=== PATIENT | female | born 1955 | race Caucasian/White ===

== ENCOUNTER 2024-12-15 19:48 | Outpatient (OUT) | payer OTHER, SELFPAY ==
--- OUTSIDE RECORDS SUMMARY | 2024-11-11 13:15 | XMS_ITS | Encounter Summary ---
Author Organization [facility] Address [address] [place] [address] Care Team Providers Care Heavy Equipment Operator/Paver Name Role Phone Sascha Campbell APRN, CNP Primary Care Pr ovider Reason for Referral * Imaging (Routine) - Closed Specialty Diagnoses / Procedures Referred By Marky ochoa Referred To Contact Radiology Diagnoses Asymptomatic menopause Procedures DEXA BONE DENSITY 2 SITES Sascha Campbell APRN - CNP [address] [facility], [facility] [place] [address] Phone: tel: fax: Referral ID Status Reason Start Date Expiration Date Visits Re quested Visits Authorized [id number] Closed 11/11/2024 11/11/2025 1 1 * Other (Routine) - Closed Specialty Diagnoses / Procedures Referred By Marky ochoa Referred To Contact Radiology Diagnoses Encounter for screening mammogram for high-risk patient Procedures FRANDY FINESSE DIGITAL SCREEN BILATERAL Sascha Campbell APRN - CNP [address] [facility], [facility] [place] [address] Phone: tel: fax: Referral ID Status Reason Start Date Expiration Date Visits Re quested Visits Authorized [id number] Closed 11/11/2024 11/11/2025 1 1 Reason for Visit * Reason Comments Facial Pain From restorationism to jaw Encounter Details Date Type Department Care Team (Late st Contact Info) Description 11/11/2024 1:15 PM EDT Office Visit Thang Kim MD [address] [place] [id number] Sascha Campbell, BLACK STUDIES PROFESSOR - INTERNET ECOMMERCE SPECIALIST [address] [facility], [place] [address] Asymptomatic menopause (Primary Dx); Encounter for screening mammogram for high-risk patient; Neck pain on right side; Acute intractable headache, unspecified headache type; Hypersomnolence Social History Tobacco Use Types Packs/Day Years Used Date Smoking Tobacco: Every Day Cigarettes 0.5 51.5 Started: 1973 Smokeless Tobacco: Never Tobacco Cessation:Ready to Q uit: No; Counseling Given: Yes Alcohol Use Standard Drinks/Week Comments Not Currently 0 (1 standard drink = 0.6 oz pur e alcohol) [facility] Utilities Answer Date Recorded In the past 12 months has [employer], gas, oil, or water [employer] [place] threatened to shut off services in your home? No 03/11/2024 Humiliation, Afraid, Rape, and Kick questionnair e Answer Date Recorded Within the last year, have y ou been afraid of your partner or ex-partner? No 03/11/2024 Within the last year, have y ou been humiliated or emotionally abused in other ways by your partner or ex-partner? No Within the last year, have y ou been kicked, hit, slapped, or otherwise physically hurt by your partner or ex-partner? No 03/11/2024 Within the last year, have y ou been raped or forced to have any kind of sexual activity by your partner or ex-partner? No 03/11/2024 Social Connection and Isolation Panel [NHANES] A nswer Date Recorded In a typical week, how many times do you talk on the phone with family, friends, or neighbors? Twice a week 03/11/2024 How often do you get together with friends or re latives? Never 03/11/2024 How often do you attend anglican or adventist serv ices? Never 03/11/2024 Do you belong to any clubs o r organizations such as anglican groups, unions, fraternal or athletic groups, or school groups? No 03/11/2024 How often do you attend meet ings of the clubs or organizations you belong to? Never 03/11/2024 Are you , , di vorced, , never , or living with a partner? 03/11/2024 AUDIT-C Answer Date Recorded Q1: How often do you have a drink containing alcohol? Never 03/11/2024 Q2: How many drinks containi ng alcohol do you have on a typical day when you are drinking? Patient does not drink Q3: How often do you have si x or more drinks on one occasion? Never 03/11/2024 Overall Financial Resource Strain (CARDIA) Answe r Date Recorded How hard is it for you to pa y for the very basics like food, housing, medical care, and heating? Not very hard 03/11/2024 PHQ-2 Answer Date Recorded PHQ-9 Total Score 0 11/11/2024 [facility] - Occupational Stress Questionnaire Answer Date Recorded Do you feel stress - tense, restless, nervous, or anxious, or unable to sleep at night because your mind is troubled all the time - these days? Not at all 03/11/2024 Exercise Vital Sign Answer Date Recorde d On average, how many days pe r week do you engage in moderate to strenuous exercise (like a brisk walk)? 0 days 03/11/2024 On average, how many minutes do you engage in exercise at this level? 0 min 03/11/2024 Hunger Vital Sign Answer Date Recorded Within the past 12 months, y ou worried that your food would run out before you got the money to buy more. Never true 03/11/20 24 Within the past 12 months, t he food you bought just didn't last and you didn't have money to get more. Never true 03/11/2024 PRAPARE - Transportation Answer Date Re corded In the past 12 months, has l ack of transportation kept you from medical appointments or from getting medications? No 02/28 In the past 12 months, has l ack of transportation kept you from meetings, work, or from getting things needed for daily living? No 03/11/2024 Housing Stability Vital Sign Answer Rayo e Recorded In the last 12 months, was t here a time when you were not able to pay the mortgage or rent on time? No 03/06/2023 Number of Places Lived in the Last Year Not on f ile 03/06/2023 In the last 12 months, was t here a time when you did not have a steady place to sleep or slept in a custodial (including now)? No 03/06/2023 Housing Stability Vital Sign Answer Rayo e Recorded In the last 12 months, was t here a time when you were not able to pay the mortgage or rent on time? No 03/11/2024 In the past 12 months, how m any times have you moved where you were living? 1 03/11/2024 At any time in the past 12 m [facility], were you homeless or living in a custodial (including now)? No 03/11/2024 Food Insecurity Answer Date Recorded Within the past 12 months, y ou worried that your food would run out before you got the money to buy more. 1 03/11/2024 Within the past 12 months, t he food you bought just didn't last and you didn't have money to get more. 1 03/11/2024 Comments No Sex and Gender Information Value Date Recorded Sex Assigned at Not on file Legal Sex Female 5:50 PM EST Gender Identity Not on file Sexual Orientation Not on file documented as of this encounter Last Filed Vital Signs Vital Sign Reading Time Taken Comments Blood Pressure 132/60 11/11/2024 1:23 PM EDT Pulse 68 11/11/2024 1:15 PM EDT Temperature - - Respiratory Rate - - Oxygen Saturation - - Inhaled Oxygen Concentration - - Weight 65.8 kg (145 lb) 11/11/2024 1:15 PM EDT Height 152.4 cm (5') 11/11/2024 1:15 PM EDT Body Mass Index 28.32 11/11/2024 1:15 PM EDT documented in this encounter Patient Instructions * Patient Instructions* Sascha Campbell APRN - INTERNET ECOMMERCE SPECIALIST - 11/11/2024 1:41 PM EDT Medications directions and side effects. Ice and heat as directed. ROM exercises/gentle stretching as directed and tolerated. documented in this encounter Progress Notes * Sascha Campbell APRN - CNP - 11/11/2024 1:19 PM EDT Images from the original note were not included. THANG KIM MD [facility] THANG KIM MD [address] [place] [address] [place] [address] Dept: [phone] Dept Adia Pena is a 68 y.o. female who presents today for her medical conditions/complaintsas noted below. Adia Pena is c/o of Facial Pain (From restorationism to jaw) HPI: HPI Adia presents today for c/o of head pain. Started around 10 days ago. Only present during the night and in the morning when she lays. In the right upper restorationism and radiates down into the right jaw almost to chin. Burning, shooting ache. No redness, no swelling, no rashes. No restorationism tenderness or swelling. Has pain the neck that she feels radiates up the head. Pain is only at night and does wax and wane with position in bed. As soon as she gets up and moves around then the pain resolves quickly. Does not have the pain at all during day no matter activity. Does feel that she has the neck painand will flare with different activities. She is walking daily for weight loss that is effective. Akin haynes takes celebrex that is helpful with knee and other joint pain. She does not take tylenol routinely. She was given 5 days of prednisone and the pain resolved while on this but came back a day or so later just at night still. She denies any falls or injuries preceding this. She denies any other neurological symptoms: facial numbness, tingling, drooping, difficulty with speech or swallowing, no hearing or visual disturbances. No extremity weakness. Denies any fevers or chills, chest pain, shortness of breath, nausea, vomiting, diarrhea, headaches, dizziness, weakness, no other problems or concerns. She does have fatigue during day. Can fall asleep easily. Unknown if snores, sleeps by herself. Hasno previous sleep studies. Current Outpatient Medications Medication Sig Dispense Refill ezetimibe (ZETIA) 10 MG tablet TAKE 1 TABLET BY MOUTH EVERY DAY 90 tablet 1 celecoxib (CELEBREX) 100 MG capsule TAKE 1 CAPSULE BY MOUTH EVERY DAY 90 capsule 1 Timnath-3 Fatty Acids (FISH OIL HIGH POTENCY) 1000 MG CAPS Take 1,000 mg by mouth daily NONFORMULARY Take 1 capsule by mouth Daily Indications: Cholesteroff Multiple Minerals-Vitamins (BVM-ORA-CEDY-D PO) Take by mouth daily Multiple Vitamins-Minerals (THERAPEUTIC MULTIVITAMIN-MINERALS) tablet Take 1 tablet by mouth daily b complex vitamins capsule Take 1 capsule by mouth daily Probiotic Product (PROBIOTIC ACIDOPHILUS BEADS PO) Take by mouth daily Cholecalciferol (VITAMIN D3) 125 MCG (5000 UT) TABS Take by mouth No current facility-administered medications for this visit. Allergies Allergen Reactions Statins Myalgia Subjective: Review of Systems Constitutional: Negative for activity change, chills and fever. HENT: Negative for ear pain, tinnitus and trouble swallowing. Eyes: Negative for photophobia, pain and visual disturbance. Respiratory: Negative for shortness of breath. Cardiovascular: Negative for chest pain and leg swelling. Gastrointestinal: Negative for abdominal pain, diarrhea, nausea and vomiting. Musculoskeletal: Positive for neck pain. Negative for arthralgias, back pain, gait problem, joint swelling, myalgias and neck stiffness. Skin: Negative for rash. Neurological: Positive for tremors, syncope and headaches. Negative for dizziness, seizures, facialasymmetry, speech difficulty, weakness, light- headedness and numbness. Objective: Physical Exam Vitals and nursing note reviewed. Constitutional: General: She is not in acute distress. Appearance: She is well-developed. She is not ill-appearing or toxic-appearing. HENT: Head: Normocephalic and atraumatic. Hair is normal. Jaw: There is normal jaw occlusion. No tenderness or pain on movement. Salivary Glands: Right salivary gland is not diffusely enlarged or tender. Left salivary gland is not diffusely enlarged or tender. Right Ear: Tympanic membrane, ear canal and external ear normal. No middle ear effusion. Tympanic membrane is not perforated or erythematous. Left Ear: Tympanic membrane, ear canal and external ear normal. No middle ear effusion. Tympanic membrane is not perforated or erythematous. Nose: No mucosal edema or rhinorrhea. Right Sinus: No maxillary sinus tenderness or frontal sinus tenderness. Left Sinus: No maxillary sinus tenderness or frontal sinus tenderness. Mouth/Throat: Mouth: Mucous membranes are not dry. Pharynx: Uvula midline. No oropharyngeal exudate or posterior oropharyngeal erythema. Eyes: General: No scleral icterus. Pupils: Pupils are equal, round, and reactive to light. Neck: Thyroid: No thyromegaly. Vascular: No carotid bruit. Trachea: Phonation normal. Cardiovascular: Rate and Rhythm: Normal rate and regular rhythm. Pulses: Normal pulses. Heart sounds: Normal heart sounds. No murmur heard. No friction rub. No gallop. Pulmonary: Effort: Pulmonary effort is normal. No respiratory distress. Breath sounds: Normal breath sounds. No decreased breath sounds, wheezing, rhonchi or rales. Abdominal: General: Bowel sounds are normal. There is no distension. Palpations: Abdomen is soft. Musculoskeletal: General: Normal range of motion. Cervical back: Full passive range of motion without pain, normal range of motion and neck supple. No rigidity. No pain with movement, spinous process tenderness or muscular tenderness. Lymphadenopathy: Head: Right side of head: No submental, submandibular, tonsillar, preauricular, posterior auricular or occipital adenopathy. Left side of head: No submental, submandibular, tonsillar, preauricular, posterior auricular or occipital adenopathy. Cervical: No cervical adenopathy. Skin: General: Skin is warm and dry. Neurological: Mental Status: She is alert and oriented to person, place, and time. Cranial Nerves: Cranial nerves 2-12 are intact. Sensory: Sensation is intact. Motor: Motor function is intact. Coordination: Coordination is intact. Coordination normal. Gait: Gait is intact. Psychiatric: Behavior: Behavior normal. Behavior is cooperative. BP 132/60 Pulse 68 Ht 1.524 m (5') Wt 65.8 kg (145 lb) BMI 28.32 kg/m?? Assessment: 1. Asymptomatic menopause Needs eval and ordered dexa - DEXA BONE DENSITY 2 SITES; Future 2. Encounter for screening mammogram for high-risk patient - [facility] FINESSE DIGITAL SCREEN BILATERAL; Future 3. Neck pain on right side Need eval for underlying cervical disc disease. She refuses a CT or MRI. - XR CERVICAL SPINE (2-3 VIEWS); Future - C-Reactive Protein; Future - Sedimentation Rate; Future 4. Acute intractable headache, unspecified headache type Positional with laying/sleep only and on lateral aspect of head. Does not seem to be trigeminal neuralgia with pain only in day and not triggered with any touch to face. Also no right restorationism pain, tenderness throughout day and likely GCA with just positional. Need inflammatory markers for eval also. Recommended tylenol prn also. - C-Reactive Protein; Future - Sedimentation Rate; Future 5. Hypersomnolence: home sleep study with headaches upon awakening and fatigue. Plan: Assessment & Plan Return if symptoms worsen or fail to improve. Orders Placed This Encounter Procedures FRANDY FINESSE DIGITAL SCREEN BILATERAL Standing Status: Future Expected Date: 11/11/2024 Expiration Date: 01/11/2026 Reason for exam:: screening DEXA BONE DENSITY 2 SITES Standing Status: Future Expected Date: 11/11/2024 Expiration Date: 11/11/2025 Reason for exam:: Screening XR CERVICAL SPINE (2-3 VIEWS) Standing Status: Future Expected Date: 11/11/2024 Expiration Date: 11/11/2025 Reason for exam:: neck pain with radiculopathy to right head C-Reactive Protein Standing Status: Future Number of Occurrences: 1 Expected Date: 11/11/2024 Expiration Date: 11/11/2025 Sedimentation Rate Standing Status: Future Number of Occurrences: 1 Expected Date: 11/11/2024 Expiration Date: 11/11/2025 No orders of the defined types were placed in this encounter. Medications directions and side effects. Ice and heat as directed. ROM exercises/gentle stretching as directed and tolerated. Patientgiven educational materials - see patient instructions. Discussed use, benefit,and side effects of prescribed medications. All patient questions answered. Pt voiced understanding. Patient agreed with treatment plan. Follow up as directed. documented in this encounter Plan of Treatment Upcoming Encounters Date Type Department Care Team (Late st Contact Info) Description 02/03/2025 9:20 AM EDT Office Visit [facility] [address] [facility] [id number] Magy Delaney MD [address] [place] [address] Chronic nonintractable headache, unspecified headache type 03/03/2025 2:30 PM EDT Office Visit Thang Kim MD [address] [place] [address] Sascha Campbell APRN - CNP [address] [facility], [place] [address] maw Scheduled Orders Name Type Priority Associated Diagnoses Orde r Schedule FRANDY FINESSE DIGITAL SCREEN BILATERAL Imaging Routine Encounter for screening mammogram for high-risk patient Expected: 11/11/2024, Expires: 01/11/2026 DEXA BONE DENSITY 2 SITES Imaging Routine Asymptomatic menopause Expected: 11/11/2024, Expires: 11/11/2025 documented as of this encounter Results * Sedimentation Rate (11/12/2024 9:58 AM EDT) Pathologist [facility] Sed Rate, Automated 26 0 - 30 mm/Hr 11/12/2024 9:58 AM EDT [facility] Blood BLOOD SPECIMEN / Unknown 11/12/2024 9:58 AM EDT 11/12/2024 11:16 AM EDT us Sascha Campbell BLACK STUDIES PROFESSOR - INTERNET ECOMMERCE SPECIALIST HEMATOLOGY ORDER JUSTIN Final Result [facility] [address] [place], [place] [id number], [facility] [phone] * (ABNORMAL) C-Reactive Protein (11/12/2024 9:58 AM EDT) Pathologist [facility] CRP 5.1(H) 0.0 - 5.0 mg/L 11/12/2024 9:58 AM EDT [facility] Blood BLOOD SPECIMEN / Unknown 11/12/2024 9:58 AM EDT 11/12/2024 11:16 AM EDT Sascha Campbell BLACK STUDIES PROFESSOR - INTERNET ECOMMERCE SPECIALIST CHEMISTRY ORDERA BLES Final Result [facility] [address] [place] [address], [facility] [phone] documented in this encounter Visit Diagnoses Diagnosis Asymptomatic menopause- Primary Encounter for screening mammogram for high-risk patient Neck pain on right side Cervicalgia Acute intractable headache, unspecified headache type Hypersomnolence Hypersomnia, unspecified documented in this encounter Additional Health Concerns Assessment Noted Time A fall risk assessment has been complete d for the patient 11/11/2024 1:15 PM EDT A Body Mass Index follow-up plan has been documented for the patient 09/02/2022 8:46 AM EST documented as of this encounter Care Teams Heavy Equipment Operator/Paver Relationship Specialty Start Date End Date Sascha Campbell APRN - CNP [address] [place] [address], [facility] [place] [address] PCP - General Nurse Practitioner, Family 02/26/22 documented as of this encounter
--- OUTSIDE RECORDS SUMMARY | 2024-12-01 09:15 | XMS_ITS | Encounter Summary ---
Author Organization [facility] Address [address] [place] [address] Care Team Providers Care Data Transcriber Name Role Phone Unavailable Primary Care Provider Unavailabl e Encounter Details Date Type Department Care Team (Latest Contact Info) Description 12/01/2024 9:15 AM EDT Ancillary Procedure [facility] [address] [place] [address] Neck pain on right side Social History Tobacco Use Types Packs/Day Years Used Date Smoking Tobacco: Never Smokeless Tobacco: Never Comments Unknown Sex and Gender Information Value Date Recorded Sex Assigned at Not on file Legal Sex Female 8:04 PM EDT Gender Identity Female 04/28/2023 11:18 AM EDT Sexual Orientation Not on file documented as of this encounter Plan of Treatment Upcoming Encounters Date Type Department Care Team (Late st Contact Info) Description 12/16/2024 9:30 AM EDT Ancillary Procedure [facility] MR [address] [place] [address] 12/16/2024 10:15 AM EDT Ancillary Procedure [facility] DXA [address] [place] [address] documented as of this encounter Procedures Procedure Name Priority Date/Time Associated Diagnosis Comments XR CERVICAL SPINE 2-3 VIEWS Routine 12/01/2024 9:10 AM EDT Neck pain on right side documented in this encounter Results * XR cervical spine 2 or 3 views (12/01/2024 9:10 AM EDT) Anatomical Region Laterality Modality Spine, C-spine Radiographic Pina ging 12/01/2024 12:1 6 PM EDT Narrative 12/01/2024 12:16 PM EDT Title of exam: XR CERVICAL SPINE 2-3 VIEWS Reason for exam: Chronic neck pain into bilateral scpular region, no trauma Comparison: None 4 images. Prevertebral soft tissues are normal in thickness. Vertebral body height and alignment is maintained from the skull base to the top of T1. Mild disc space narrowing present at C4-C5, C5-C6 and C6-C7 with anterior and posterior spurring. Mild facet arthrosis present at these levels. The spinous processes are normal alignment in the frontal projection. Mild uncovertebral hypertrophy present throughout. The lung apices are without abnormality. Calcifications in the soft tissues suggesting atherosclerosis. The lateral masses and dens are normal alignment in the frontal and lateral projections. The bones are osteopenic. Incidental arthritic changes of the shoulder noted on the swimmer's view. IMPRESSION: 1. Cervical spondylosis from C4-C7 due to disc space narrowing and endplate spurring. Facet arthrosis. 2. Atherosclerosis. 3. Arthritic changes of the shoulder, noted incidentally given the history. Consider shoulder x-rays. Dictated on: 12/01/2024 10:03 AM This report has been electronically signed and approved by the interpreting Radiologist. This report is generated using voice recognition reporting ([employer]). On occasion, [employer] erroneously drops words from the report or replaces the spoken word with a similar sounding word. Please call with any questions/concerns regarding the report. Procedure Note Montana Vegas MD - 12/01/2024 Title of exam: XR CERVICAL SPINE 2-3 VIEWS Reason for exam: Chronic neck pain into bilateral scpular region, notrauma Comparison: None 4 images. Prevertebral soft tissues are normal in thickness. Vertebralbody height and alignment is maintained from the skull base to the top ofT1. Mild disc space narrowing present at C4-C5, C5-C6 and C6-C7 withanterior and posterior spurring. Mild facet arthrosis present at theselevels. The spinous processes are normal alignment in the frontalprojection. Mild uncovertebral hypertrophy present throughout. The lung apices are without abnormality. Calcifications in the softtissues suggesting atherosclerosis. The lateral masses and dens are normal alignment in the frontal andlateral projections. The bones are osteopenic. Incidental arthritic changes of the shoulder noted on the swimmer'sview. IMPRESSION: 1. Cervical spondylosis from C4-C7 due to disc space narrowing andendplate spurring. Facet arthrosis. 2. Atherosclerosis. 3. Arthritic changes of the shoulder, noted incidentally given thehistory. Consider shoulder x-rays. Dictated on: 12/01/2024 10:03 AM This report has been electronically signed and approved by theinterpreting Radiologist. This report is generated using voice recognition reporting (Contin[employer] Software).On occasion, [employer] erroneously drops words from the report orreplaces the spoken word with a similar sounding word. Please call withany questions/concerns regarding the report. us Osmany Vo MD IMG XR PROCEDURES Final Result documented in this encounter Visit Diagnoses Diagnosis Neck pain on right side documented in this encounter
--- OUTSIDE RECORDS SUMMARY | 2024-12-01 09:30 | XMS_ITS | Encounter Summary ---
Author Organization [facility] Address [address] [place] [address] Care Team Providers Care Ranch Supervisor Name Role Phone Unavailable Primary Care Provider Unavailabl e Reason for Visit * Imaging (Routine) - Closed Specialty Diagnoses / Procedures Referred By Contac t Referred To Contact Radiology Diagnoses Neck pain on right side Headache, unspecified Procedures CT head w and wo IV contrast CT head w IV contrast Osmany Vo MD [address] [place] [address] Phone: tel: fax: [facility] [address] [place] [address] Phone: tel: fax: Referral ID Status Reason Start Date Expiration Date Visits Re quested Visits Authorized [id number] Closed 11/17/2024 05/16/2025 1 1 Encounter Details Date Type Department Care Team (Latest Contact Info) Description 12/01/2024 9:30 AM EDT Ancillary Procedure [facility] [address] [place] [address] Neck pain on right side; Headache, unspecified Social History Tobacco Use Types Packs/Day Years Used Date Smoking Tobacco: Never Smokeless Tobacco: Never Comments Unknown Sex and Gender Information Value Date Recorded Sex Assigned at Not on file Legal Sex Female 8:04 PM EDT Gender Identity Female 04/28/2023 11:18 AM EDT Sexual Orientation Not on file documented as of this encounter Plan of Treatment Upcoming Encounters Date Type Department Care Team ( st Contact Info) Description 12/16/2024 9:30 AM EDT Ancillary Procedure [facility] [address] [place] [address] 12/16/2024 10:15 AM EDT Ancillary Procedure [facility] [address] [place] [address] documented as of this encounter Procedures Procedure Name Priority Date/Time Associated Diagnosis Comments CT HEAD W AND WO IV CONTRAST Routine 12/01/2024 10:02 AM EDT Neck pain on right side Headache, unspecified documented in this encounter Results * CT head w and wo IV contrast (12/01/2024 10:02 AM EDT) Anatomical Region Laterality Modality Head, Neck Computed Tomogra phy Specimen from head / Unknown 12/02/2024 4:46 PM EDT Narrative 12/02/2024 4:46 PM EDT EXAM: CT Head With and Without Contrast. REASON FOR EXAM: Generalized headache x3 weeks. COMPARISON: None TECHNIQUE: Axial pre and post contrast images of the brain were obtained. CONTRAST: 50 ml Isovue 300 FINDINGS: There is no acute intracranial hemorrhage, mass or cortical-based infarct. There is no midline shift, mass effect, hydrocephalus or extra-axial fluid collection. The ventricles and sulci are symmetric. The smith-white interface is preserved. The visualized paranasal sinuses and mastoid air cells are well aerated. The osseous structures are unremarkable. Scattered white matter changes are present bilateral and symmetric. IMPRESSION: 1. No acute intracranial abnormalities by CT. There is no abnormal enhancement. 2. Scattered white matter changes bilateral and symmetric. The differential includes microvascular ischemic change, toxic or substance exposure, periventricular leukomalacia, demyelination. Correlate clinically. *This report is generated using voice recognition reporting (Beyond.come). On occasion Arkeocribe erroneously drops words from the report or replaces the spoken word with similar sounding words. Please call with any questions/concerns regarding this report.* Dictated and transcribed 12/01/24/dpd This report has been electronically signed and approved by the interpreting radiologist. Procedure Note Montana Vegas MD - 12/02/2024 EXAM: CT Head With and Without Contrast. REASON FOR EXAM: Generalized headache x3 weeks. COMPARISON: None TECHNIQUE: Axial pre and post contrast images of the brain wereobtained. CONTRAST: 50 ml Isovue 300 FINDINGS: There is no acute intracranial hemorrhage, mass orcortical-based infarct. There is no midline shift, mass effect,hydrocephalus or extra-axial fluid collection. The ventricles and sulciare symmetric. The smith-white interface is preserved. The visualizedparanasal sinuses and mastoid air cells are well aerated. The osseousstructures are unremarkable. Scattered white matter changes are present bilateral and symmetric. IMPRESSION: 1. No acute intracranial abnormalities by CT. There is no abnormalenhancement. 2. Scattered white matter changes bilateral and symmetric. Thedifferential includes microvascular ischemic change, toxic or substanceexposure, periventricular leukomalacia, demyelination. Correlateclinically. *This report is generated using voice recognition reporting (InVisM).On occasion InVisM erroneously drops words from the report orreplaces the spoken word with similar sounding words. Please call with anyquestions/concerns regarding this report.* Dictated and transcribed 12/01/24/dpd This report has been electronically signed and approved by theinterpreting radiologist. Osmany Vo MD IMG CT PROCEDURES Final Result documented in this encounter Visit Diagnoses Diagnosis Neck pain on right side Headache, unspecified documented in this encounter Administered Medications Inactive Administered Medications - up to 3 most recent administrations Medication Order MAR Action Action Date Dose Rate Site iopamidol (Isovue-300) 61 % injection 100 mL 100 mL, Intravenous, Once in imaging, Starting on Fri12/01/24 at 1002, For 1 dose, Use NS provided in 500 mL or 1000 mL flexible bags for preparation.Indications:Neck pain on right side,Headache, unspecified New Bag 12/01/2024 10:03 AM EDT 100 mL documented in this encounter
--- OUTSIDE RECORDS SUMMARY | 2024-12-01 10:00 | XMS_ITS | Encounter Summary ---
Author Organization [facility] Address [address] [place] [address] Care Team Providers Care Machine Rug Cleaner Name Role Phone Unavailable Primary Care Provider Unavailabl e Reason for Visit * Imaging (Routine) - Closed Specialty Diagnoses / Procedures Referred By Contac t Referred To Contact Radiology Diagnoses Personal history of nicotine dependence Procedures CT lung screening low dose Osmany Vo MD [address] [place] [address] Phone: tel: fax: [facility] [address] [place] [address] Phone: tel: fax: Referral ID Status Reason Start Date Expiration Date Visits Re quested Visits Authorized [id number] Closed 12/01/2024 05/30/2025 1 1 Encounter Details Date Type Department Care Team (Latest Contact Info) Description 12/01/2024 10:00 AM EDT Ancillary Procedure [facility] [address] [place] [address] Personal history of nicotine dependence Social History Tobacco Use Types Packs/Day Years [...] Ancillary Procedure [facility] [address] [place] [address] 12/16/2024 10:15 AM EDT Ancillary Procedure [facility] [address] [place] [id number] documented as of this encounter Procedures Procedure Name Priority Date/Time Associated Diagnosis Comments CT LUNG SCREENING LOW DOSE Routine 12/01/2024 10:03 AM EDT Personal history of nicotine dependence documented in this encounter Results * CT lung screening low dose (12/01/2024 10:03 AM EDT) Anatomical Region Laterality Modality Lung Computed Tomogra phy 12/01/2024 10:5 7 AM EDT Impressions 12/01/2024 11:13 AM EDT Lung Rads: LUNGRADS 2 - Benign Follow-up Recommendation: LDCT 1 Year Lung Rads categories: Category 0: Incomplete Additional Imaging Categories 1 & 2: Negative/Benign Continue annual screening Category 3: Probable benign 6 month f/u CT Chest wo Category 3s: Clinically significant or potentially clinically significant findings Category 4A/B Suspicious 4A: [address] Chest wo; PET/CT when > 8mm solid nodule component exists 4B: Chest w/ contrast; PET/CT and/or biopsy Category 5: Highly suspicious for Nodules with strong evidence of malignancy, requiring malignancy. immediate biopsy. Category 6: Incomplete Insufficient Information All CT scans at this facility use dose modulation, iterative reconstruction, and/or weight based dosing when appropriate to reduce radiation dose to as low as reasonably achievable. TRANSCRIBED BY: ELECTRONICALLY SIGNED BY: Javier Hazel MD Narrative 12/01/2024 11:[address] IMAGING OF THE CHEST WITHOUT INTRAVENOUS CONTRAST MEDIUM. HISTORY: Tobacco use. TECHNICAL FACTORS: Without IV contrast axial helical 1.25mm slice thickness low dose images of the chest performed for lung cancer screening. Findings: Comparison made with prior examination of April 29, 2023. No suspicious mass or parenchymal consolidation. Stable right upper lobe 2mm non-calcified nodule. New minimal subsegmental atelectasis within the right base. Procedure Note Javier Hazel MD - 12/01/[address] IMAGING OF THE CHEST WITHOUT INTRAVENOUS CONTRAST MEDIUM. HISTORY: Tobacco use. TECHNICAL FACTORS: Without IV contrast axial helical 1.25mm slice thickness low dose imagesof the chest performed for lung cancer screening. Findings: Comparison made with prior examination of April 29, 2023. No suspiciousmass or parenchymal consolidation. Stable right upper lobe 2mmnon-calcified nodule. New minimal subsegmental atelectasis within theright base. IMPRESSION: Lung Rads: LUNGRADS 2 - Benign Follow-up Recommendation: LDCT 1 Year Lung Rads categories: Category 0: Incomplete Additional Imaging Categories 1 & 2: Negative/Benign Continue annual screening Category 3: Probable benign 6 month f/u CT Chest wo Category 3s: Clinicallysignificant or potentially clinically significant findings Category 4A/B Suspicious 4A: [address] Chest wo;PET/CT when > 8mm solid nodulecomponent exists 4B: Chestw/ contrast; PET/CT and/or biopsy Category 5: Highly suspicious for Nodules with strong evidenceof malignancy, requiring malignancy. immediatebiopsy. Category 6: Incomplete Insufficient Information All CT scans at this facility use dose modulation, iterativereconstruction, and/or weight based dosing when appropriate to reduceradiation dose to as low as reasonably achievable. TRANSCRIBED BY: ELECTRONICALLY SIGNED BY: Javier Hazel MD Osmany Vo MD IMG CT PROCEDURES Final Result documented in this encounter Visit Diagnoses Diagnosis Personal history of nicotine dependence documented in this encounter
--- OUTSIDE RECORDS SUMMARY | 2024-12-15 19:51 | XMS_ITS | Encounter Summary ---
Author Organization [facility] Address [address] [place] [address] Care Team Providers Care Asw/Asuw Tactical Air Controller Name Role Phone Sascha Campbell BOILER HOUSE MECHANIC - FUNERAL CAR CHAUFFEUR Primary Care Pr ovider Encounter Details Date Type Department Care Team ([facility] Contact Info) Description 05/01/2023 Orders Only Osmany Vo MD [address] [place] [address] [place] [phone] ProviderSamy MD Social History Tobacco Use Types Packs/Day Years Used Date Smoking Tobacco: Every Day Cigarettes 0.5 51.5 Started: 1973 Smokeless Tobacco: Never Alcohol Use Standard Drinks/Week Comments Not Currently 0 (1 standard drink = 0.6 oz pur e alcohol) Humiliation, Afraid, Rape, and Kick questionnair e Answer Date Recorded Within the last year, have y ou been afraid of your partner or ex-partner? No 03/06/2023 Within the last year, have y ou been humiliated or emotionally abused in other ways by your partner or ex-partner? No Within the last year, have y ou been kicked, hit, slapped, or otherwise physically hurt by your partner or ex-partner? No 03/06/2023 Within the last year, have y ou been raped or forced to have any kind of sexual activity by your partner or ex-partner? No 03/06/2023 Social Connection and Isolat ion Panel [NHANES] Answer Date Recorded In a typical week, how many times do you talk on the phone with family, friends, or neighbors? More than three times a week 03/06/2023 How often do you get togethe r with friends or relatives? Once a week 03/06/2023 How often do you attend chur ch or baptist services? Never 03/06/2023 Do you belong to any clubs o r organizations such as adventist groups, unions, fraternal or athletic groups, or school groups? No 03/06/2023 How often do you attend meet ings of the clubs or organizations you belong to? Never 03/06/2023 Are you , , di vorced, , never , or living with a partner? 03/06/2023 AUDIT-C Answer Date Recorded Q1: How often do you have a drink containing alc ohol? Monthly or less 03/06/2023 Q2: How many drinks containi ng alcohol do you have on a typical day when you are drinking? 1 or 2 03/06/2023 Q3: How often do you have si x or more drinks on one occasion? Never 03/06/2023 Overall Financial Resource Strain (CARDIA) Answe r Date Recorded How hard is it for you to pa y for the very basics like food, housing, medical care, and heating? Not hard at all 03/06/2023 PHQ-2 Answer Date Recorded PHQ-9 Total Score 0 03/06/2023 [facility] of Occupat ional Health - Occupational Stress Questionnaire Answer Date Recorded Do you feel stress - tense, restless, nervous, or anxious, or unable to sleep at night because your mind is troubled all the time - these days? Not at all 03/06/2023 Exercise Vital Sign Answer Date Recorde d On average, how many days pe r week do you engage in moderate to strenuous exercise (like a brisk walk)? 6 days 03/06/2023 On average, how many minutes do you engage in exercise at this level? 30 min 03/06/2023 Hunger Vital Sign Answer Date Recorded Within the past 12 months, y ou worried that your food would run out before you got the money to buy more. Never true 03/06/20 23 Within the past 12 months, t he food you bought just didn't last and you didn't have money to get more. Never true 03/06/2023 PRAPARE - Transportation Answer Date Re corded In the past 12 months, has l ack of transportation kept you from medical appointments or from getting medications? No 12/2022 In the past 12 months, has l ack of transportation kept you from meetings, work, or from getting things needed for daily living? No 03/06/2023 Housing Stability Vital Sign Answer [...] place to sleep or slept in a mcc (including now)? No 03/06/2023 Food Insecurity Answer Date Recorded Within the past 12 months, y ou worried that your food would run out before you got the money to buy more. 1 03/06/2023 Within the past 12 months, t he food you bought just didn't last and you didn't have money to get more. 1 03/06/2023 Comments No Sex and Gender Information Value Date Recorded Sex Assigned at Not on file Legal Sex Female 5:50 PM EST Gender Identity Not on file Sexual Orientation Not on file documented as of this encounter Plan of Treatment Upcoming Encounters Date Type Department Care Team (Late st Contact Info) Description 02/03/2025 9:20 AM EDT Office Visit [facility] Part of [address] [place] [phone] Magy Delaney MD [address] [place] [address] [address] [place] [phone] Chronic nonintractable headache, unspecified headache type 03/03/2025 2:30 PM EDT Office Visit Osmany Vo MD [address] [place] [address] [place] [address] Sascha Campbell, BOILER HOUSE MECHANIC - FUNERAL CAR CHAUFFEUR [address] [place] [address], [address] [facility] [place] [address] maw documented as of this encounter Procedures Procedure Name Priority Date/Time Associated Diagnosis Comments CT LUNG SCREENING (INITIAL/ANNUAL) Routine 04/29/2023 documented in this encounter Results * CT LUNG SCREENING (04/29/2023) Anatomical Region Laterality Modality Lung, Chest Computed Tomogra phy us Historical Provider MD JESUS CT ORDERABLES Final R esult documented in this encounter Visit Diagnoses Not on filedocumented in this encounter Additional Health Concerns Assessment Noted Time A fall risk assessment has been complete d for the patient 03/06/2023 8:37 AM EDT A Body Mass Index follow-up plan has been documented for the patient 09/02/2022 8:46 AM EST documented as of this encounter Care Teams Asw/Asuw Tactical Air Controller Relationship Specialty Start Date End Date Sascha Campbell APRN - MAIKEL [address] [place] [address], [place] [address] PCP - General Nurse Practitioner, Family 02/26/22 documented as of this encounter
--- OUTSIDE RECORDS SUMMARY | 2024-12-15 19:51 | XMS_ITS | Encounter Summary ---
Author Organization [facility] Address [address] [place] [address] Care Team Providers Care Gear Hobber Operator Name Role Phone Sascha Campbell PHOTOGRAPHIC SPOTTER - SECOND HELPER Primary Care Pr ovider Encounter Details Date Type Department Care Team ([facility] Contact Info) Description 12/03/2024 Telephone Osmany Vo MD [address] [place] [address] Sascha Campbell, PHOTOGRAPHIC SPOTTER - SECOND HELPER [address] [facility], [place] [address] Social History Tobacco Use Types Packs/Day Years Used Date Smoking Tobacco: Every Day Cigarettes 0.5 51.5 Started: 1973 Smokeless Tobacco: Never Alcohol Use Standard Drinks/Week Comments Not Currently 0 (1 standard drink = 0.6 oz pur e alcohol) [facility] Utilities Answer Date Recorded In the past 12 months has [employer], gas, oil, or water [employer] threatened to shut off services in your [...] Never 03/11/2024 How often do you attend holiness or samaritan serv ices? Never 03/11/2024 Do you belong to any clubs o r organizations such as holiness groups, unions, fraternal or athletic groups, or [...] Date Recorded PHQ-9 Total Score 0 11/11/2024 [facility] of Occupat ional Health - Occupational Stress [...] place to sleep or slept in a long term (including now)? No 03/06/2023 Housing Stability Vital Sign Answer Rayo e Recorded In the last 12 months, was t here a time when you were not able to pay the mortgage or rent on time? No 03/11/2024 In the past 12 months, how m any times have you moved where you were living? 1 03/11/2024 At any time in the past 12 m [facility], were you homeless or living in a long term (including now)? No 03/11/2024 Food Insecurity Answer [...] Description 02/03/2025 9:20 AM EDT Office Visit [facility] Part of [address] [place] [address] Magy Delaney MD [address] [place] [address] [address] [facility] [place] [phone] Chronic nonintractable headache, unspecified headache type 03/03/2025 2:30 PM EDT Office Visit Osmany Vo MD [address] [place] [address] [place] [phone] Sascha Campbell, PHOTOGRAPHIC SPOTTER - MAIKEL [address] [facility], [facility] [place] [address] maw documented as of this encounter Visit Diagnoses Not on filedocumented in this encounter Additional Health Concerns Assessment Noted Time A fall risk assessment has been complete d for the patient 11/11/2024 1:15 PM EDT A Body Mass Index follow-up plan has been documented for the patient 09/02/2022 8:46 AM EST documented as of this encounter Care Teams Gear Hobber Operator Relationship Specialty Start Date End Date Sascha Campbell APRN - MAIKEL [address] [place] [address] [place] [address] PCP - General Nurse Practitioner, Family 02/26/22 documented as of this encounter
--- OUTSIDE RECORDS SUMMARY | 2024-12-15 19:51 | XMS_ITS | Encounter Summary ---
Author Organization [facility] Address [address] [place] [address] Care Team Providers Care [employer] Executive Director Name Role Phone Unavailable Primary Care Provider Unavailabl e Encounter Details Date Type Department Care Team (Latest Contact Info) Description 12/07/2024 Travel Social History Tobacco Use Types Packs/Day Years [...] Ancillary Procedure [facility] [address] [place] [address] 12/16/2024 10:15 AM EDT Ancillary Procedure [facility] [address] [place] [address] documented as of this encounter Visit Diagnoses Not on filedocumented in this encounter
--- OUTSIDE RECORDS SUMMARY | 2024-12-15 19:51 | XMS_ITS | Encounter Summary ---
Author Organization [facility] Bj [facility] lamin [facility] Address [address] [place] [address] Care Team Providers Care Cytotechnologist/Cytology Supervisor Name Role Phone Sascha Campbell APRN, CNP Primary Care Pr ovider Reason for Referral * Eval and Treat (Routine) - Open Specialty Diagnoses / Procedures Referred By Marky ochoa Referred To Contact Neurology Diagnoses Chronic nonintractable headache, unspecified headache type Acute intractable headache, unspecified headache type Sascha Campbell APRN - CNP [address] [facility], [place] [address] Phone: tel: fax: Bridgett Bustamante DO [address] [place] [address] Phone: tel: fax: Referral ID Status Reason Start Date Expiration Date V isits Requested Visits Authorized [id number] Open Specialty Services Required 12/07/2024 06/05/2025 1 1 Question Answer Reason For External Referral? Patient Preference Comments The patient can be scheduled with any member of the group, including the provider with the first available appointments. Encounter Details Date Type Department Care Team ([facility] Contact Info) Description 12/07/2024 Orders Only Osmany Vo MD [address] [place] [address] [place] [address] Sascha Campbell APRN - CNP [address] [facility], [place] [address] Acute intractable headache, unspecified headache type (Primary Dx); Chronic nonintractable headache, unspecified headache type Social History Tobacco Use Types Packs/Day Years Used Date Smoking Tobacco: Every Day Cigarettes 0.5 51.5 Started: 1973 Smokeless Tobacco: Never Alcohol Use Standard Drinks/Week Comments Not Currently 0 (1 standard drink = 0.6 oz pur e alcohol) [facility] Utilities Answer Date Recorded In the past 12 months has e [employer], gas, oil, or water [employer] threatened to shut off services in your [...] Never 03/11/2024 How often do you attend gnosticism or uatsdin serv ices? Never 03/11/2024 Do you belong to any clubs o r organizations such as gnosticism groups, unions, fraternal or athletic groups, or [...] Date Recorded PHQ-9 Total Score 0 11/11/2024 [facility] of Occupat ional Health - Occupational Stress [...] place to sleep or slept in a halfway (including now)? No 03/06/2023 Housing Stability Vital Sign Answer Rayo e Recorded In the last 12 months, was t here a time when you were not able to pay the mortgage or rent on time? No 03/11/2024 In the past 12 months, how m any times have you moved where you were living? 1 03/11/2024 At any time in the past 12 m [place], were you homeless or living in a halfway (including now)? No 03/11/2024 Food Insecurity Answer [...] Description 02/03/2025 9:20 AM EDT Office Visit [facility] NEUROLOGY Part of [address] [place] [address] Magy Delaney MD [address] [place] [address] [address] [place] [address] Chronic nonintractable headache, unspecified headache type 03/03/2025 2:30 PM EDT Office Visit Osmany Vo MD [address] [place] [address] [place] [address] Sascha Campbell, STITCHDOWN TOE FORMER - HEALTH INFORMATION TECHNICIAN [address] [place] [address], [place] [address] aida documented as of this encounter Procedures Procedure Name Priority Date/Time Associated Diagnosis Comments AMB EXTERNAL REFERRAL TO NEUROLOGY Routine 12/07/2024 Chronic nonintractable headache, unspecified headache type Acute intractable headache, unspecified headache type documented in this encounter Results * External Referral To Neurology (12/07/2024) Sascha Campbell APRN - MAIKEL CHP AMB EXT REFE RRALS Final Result documented in this encounter Visit Diagnoses Diagnosis Acute intractable headache, unspecified headache type- Primary Chronic nonintractable headache, unspecified headache type documented in this encounter Additional Health Concerns Assessment Noted Time A fall risk assessment has been complete d for the patient 11/11/2024 1:15 PM EDT A Body Mass Index follow-up plan has been documented for the patient 09/02/2022 8:46 AM EST documented as of this encounter Care Teams Cytotechnologist/Cytology Supervisor Relationship Specialty Start Date End Date Sascha Campbell APRN - CNP [address] [place] [address], [facility] [place] [address] PCP - General Nurse Practitioner, Family 02/26/22 documented as of this encounter
--- OUTSIDE RECORDS SUMMARY | 2024-12-15 19:51 | XMS_ITS | Encounter Summary ---
Author Organization [facility] Address [address] [place] [address] Care Team Providers Care Mounter Hand Name Role Phone Sascha Campbell CLIP WRAPPER - DIRECTOR MEDICAL ECONOMICS Primary Care Pr ovider Encounter Details Date Type Department Care Team ([facility] Contact Info) Description 06/09/2023 Orders Only Osmany Vo MD [address] [place] [address] [place] [phone] ProviderSamy MD Social History Tobacco Use Types [...] often do you attend chur ch or sikhism services? Never 03/06/2023 Do you belong to any clubs o r organizations such as caodaism groups, unions, fraternal or athletic groups, or [...] Date Recorded PHQ-9 Total Score 0 03/06/2023 [facility] of Occupat ional Health - Occupational Stress [...] place to sleep or slept in a residential (including now)? No 03/06/2023 Food Insecurity Answer [...] Description 02/03/2025 9:20 AM EDT Office Visit [facility] NEUROLOG[facility] Part of [address] [place] [address] Magy Delaney MD [address] [place] [address] Dr [address] [place] [address] Chronic nonintractable headache, unspecified headache type 03/03/2025 2:30 PM EDT Office Visit Osmany Vo MD [address] [place] [address] [place] [address] Sascha Campbell, CLIP WRAPPER - DIRECTOR MEDICAL ECONOMICS [address] [place] [address], [address] [facility] [address] maw documented as of this encounter Procedures Procedure Name Priority Date/Time Associated Diagnosis Comments COMPREHENSIVE METABOLIC PANEL, FASTING Routine 06/04/2023 LIPID PANEL Routine 06/04/2023 LIPID PANEL Routine 01/29/2023 documented in this encounter Results * (ABNORMAL) Lipid Panel (06/04/2023) Cholesterol, Total 251 mg/dL HDL 61 35 - 70 mg/dL LDL Calculated 175(A) 0 - 160 mg/dL Triglycerides 79 mg/dL Chol/HDL Ratio 4.1 VLDL 15.8 mg/dL Cholesterol non HDL Blood BLOOD SPECIMEN / Unknown Historical Provider MD CHEMISTRY ORDERABLES Edit ed Result - Final * Comprehensive Metabolic Panel, Fasting (06/04/2023) Glucose, Fasting 76 mg/dL Creatinine 0.94 BUN 25.0 mg/dL Sodium 141 mmol/L Potassium 4.4 mmol/L Chloride 104 mmol/L CO2 28.8 mmol/L Calcium 9.3 mg/dL AST 19 U/L Alkaline Phosphatase 64 U/L Total Protein 7.3 6.4 - 8.2 g/dL Albumin 3.5 Total Bilirubin 0.3 0.1 - 1.4 mg/dL ALT 22 U/L Blood BLOOD SPECIMEN / Unknown Historical Provider MD CHEMISTRY ORDERABLES Edit ed Result - Final * (ABNORMAL) Lipid Panel (01/29/2023) Cholesterol, Total 246 mg/dL HDL 57 35 - 70 mg/dL LDL Calculated 173.0(A) 0 - 160 mg/dL Triglycerides 80 mg/dL Chol/HDL Ratio 4.3 VLDL 16 mg/dL Cholesterol non HDL Blood BLOOD SPECIMEN / Unknown 01/29/2023 Historical Provider CHEMISTRY ORDERABLES Edit ed Result - Final documented in this encounter Visit Diagnoses Not on filedocumented in this encounter Additional Health Concerns Assessment Noted Time A fall risk assessment has been complete d for the patient 03/06/2023 8:37 AM EDT A Body Mass Index follow-up plan has been documented for the patient 09/02/2022 8:46 AM EST documented as of this encounter Care Teams Mounter Hand Relationship Specialty Start Date End Date Sascha Campbell APRN - MAIKEL [address] [place] [address], [facility] [place] [id number] PCP - General Nurse Practitioner, Family 02/26/22 documented as of this encounter
--- OUTSIDE RECORDS SUMMARY | 2024-12-15 19:51 | XMS_ITS | Encounter Summary ---
Author Organization [facility] lamin [facility] Address [address] [place] [address] Care Team Providers Care Hay Stacker Name Role Phone Sascha Campbell TURNTABLE OPERATOR - DOWEL PIN MAN Primary Care Pr ovider Reason for Visit * Reason Onset Date Comments Medication Problem 12/07/2024 Encounter Details Date Type Department Care Team ([facility] Contact Info) Description 12/07/2024 Telephone Osmany Vo MD [address] [place] [address] Sascha Campbell, TURNTABLE OPERATOR - DOWEL PIN MAN [address] [facility], [place] [address] Medication Problem Social History Tobacco Use Types Packs/Day Years Used Date Smoking Tobacco: Every Day Cigarettes 0.5 51.5 Started: 1973 Smokeless Tobacco: Never Alcohol Use Standard Drinks/Week Comments Not Currently 0 (1 standard drink = 0.6 oz pur e alcohol) [facility] Utilities Answer Date Recorded In the past 12 months has [facility] [employer], gas, oil, or water [employer] threatened to shut off services in your [...] Never 03/11/2024 How often do you attend advent or mu-ism serv ices? Never 03/11/2024 Do you belong to any clubs o r organizations such as advent groups, unions, fraternal or athletic groups, or [...] Date Recorded PHQ-9 Total Score 0 11/11/2024 [facility] of Occupat ional Health - Occupational Stress [...] place to sleep or slept in a skilled nursing (including now)? No 03/06/2023 Housing Stability Vital Sign Answer Rayo e Recorded In the last 12 months, was t here a time when you were not able to pay the mortgage or rent on time? No 03/11/2024 In the past 12 months, how m any times have you moved where you were living? 1 03/11/2024 At any time in the past [address] [facility], were you homeless or living in a skilled nursing (including now)? No 03/11/2024 Food Insecurity Answer [...] [facility] NEUROLOGY Part of [facility] [address] [facility] [address] [facility] [place] [address] Magy Delaney MD [address] [facility] [address] [facility] [place] [address] Chronic nonintractable headache, unspecified headache type 03/03/2025 2:30 PM EDT Office Visit Osmany Vo MD [address] [place] [address] [place] [address] Sascha Campbell APRN - CNP [address] [place] [address] [place] [address] maw documented as of this encounter Visit Diagnoses Not on filedocumented in this encounter Additional Health Concerns Assessment Noted Time A fall risk assessment has been complete d for the patient 11/11/2024 1:15 PM EDT A Body Mass Index follow-up plan has been documented for the patient 09/02/2022 8:46 AM EST documented as of this encounter Care Teams Hay Stacker Relationship Specialty Start Date End Date Sascha Campbell APRN - CNP [address] [place] [address] [place] [address] PCP - General Nurse Practitioner, Family 02/26/22 documented as of this encounter
--- OUTSIDE RECORDS SUMMARY | 2024-12-15 19:51 | XMS_ITS | Encounter Summary ---
Author Organization [facility] lamin O[facility]. Address [address] [place] [address] Care Team Providers Care Pattern Generator Operator Name Role Phone Sascha Campbell RESIDENTIAL FEE APPRAISER - SEARCH OPTIMIZATION ANALYST Primary Care Pr ovider Reason for Visit * Reason Onset Date Comments Abnormal Test Results 11/15/2024 Encounter Details Date Type Department Care Team ([facility] Contact Info) Description 11/15/2024 Results Follow-Up Osmany Vo MD [address] [place] [address] [place] [phone] Sascha Campbell, RESIDENTIAL FEE APPRAISER - SEARCH OPTIMIZATION ANALYST [address] [facility], [place] [address] Abnormal Test Results Social History Tobacco Use Types Packs/Day Years Used Date Smoking Tobacco: Every Day Cigarettes 0.5 51.5 Started: 1974 Smokeless Tobacco: Never Alcohol Use Standard Drinks/Week Comments Not Currently 0 (1 standard drink = 0.6 oz pur e alcohol) [facility] Utilities Answer Date Recorded In the past 12 months has e electric, gas, oil, or water company threatened to shut off services in your [...] Never 03/11/2024 How often do you attend zoroastrian or scientology serv ices? Never 03/11/2024 Do you belong to any clubs o r organizations such as zoroastrian groups, unions, fraternal or athletic groups, or [...] Recorded PHQ-9 Total Score 0 11/11/2024 [facility] of Occupat ional Health - Occupational Stress [...] in a residential (including now)? No 03/06/2023 Housing Stability Vital Sign Answer Rayo e Recorded In the last 12 months, was t here a time when you were not able to pay the mortgage or rent on time? No 03/11/2024 In the past 12 months, how m any times have you moved where you were living? 1 03/11/2024 At any time in the past 12 m [facility], were you homeless or living in a residential (including now)? No 03/11/2024 Food Insecurity Answer [...] Description 02/03/2025 9:20 AM EDT Office Visit [facility] NEUROLOGY Part of [address] [place] [address] Magy Delaney MD [address] [facility] [address] [place] [address] Chronic nonintractable headache, unspecified headache type 03/03/2025 2:30 PM EDT Office Visit Osmany Vo MD [address] [place] [address] [place] [address] Sascha Campbell APRN - CNP [address] [place] [address] [place] [address] maw documented as of this encounter Visit Diagnoses Not on filedocumented in this encounter Additional Health Concerns Assessment Noted Time A fall risk assessment has been complete d for the patient 11/11/2024 1:15 PM EDT A Body Mass Index follow-up plan has been documented for the patient 09/02/2022 8:46 AM EST documented as of this encounter Care Teams Pattern Generator Operator Relationship Specialty Start Date End Date Sascha Campbell APRN - CNP [address] [place] [address] [place] [address] PCP - General Nurse Practitioner, Family 02/26/22 documented as of this encounter
--- OUTSIDE RECORDS SUMMARY | 2024-12-15 19:51 | XMS_ITS | Encounter Summary ---
Author Organization [facility] lamin O.H[facility]C.A. Address [address] [place] [address] Care Team Providers Care Billing Collections Specialist Name Role Phone Sascha Campbell VIGOUREUX PRINTER - LICENSED CLINICIAN Primary Care Pr ovider Encounter Details Date Type Department [facility] Team ([facility] Contact Info) Description 12/02/2024 Orders Only Osmany Vo MD [address] [place] [address] Sascha Campbell, VIGOUREUX PRINTER - LICENSED CLINICIAN [address] [facility], [place] [address] Social History Tobacco Use Types Packs/Day Years Used Date Smoking Tobacco: Every Day Cigarettes 0.5 51.5 Started: 1973 Smokeless Tobacco: Never Alcohol Use Standard Drinks/Week Comments Not Currently 0 (1 standard drink = 0.6 oz pur e alcohol) [facility] Utilities Answer Date Recorded In the past 12 months has e [employer], gas, oil, or water [email or web address] threatened to shut off services in your [...] Never 03/11/2024 How often do you attend pentecostal or confucianist serv ices? Never 03/11/2024 Do you belong to any clubs o r organizations such as pentecostal groups, unions, fraternal or athletic groups, or [...] Date Recorded PHQ-9 Total Score 0 11/11/2024 [facility] of Occupat ional Health - [...] place to sleep or slept in a retirement (including now)? No 03/06/2023 Housing Stability Vital Sign Answer Rayo e Recorded In the last 12 months, was t here a time when you were not able to pay the mortgage or rent on time? No 03/11/2024 In the past 12 months, how m any times have you moved where you were living? 1 03/11/2024 At any time in the past 12 m [facility], were you homeless or living in a retirement (including now)? No 03/11/2024 Food Insecurity Answer [...] Description 02/03/2025 9:20 AM EDT Office Visit [facility] NEUROLOG[facility] Part of [address] [place] [phone] Magy Delaney MD [address] [place] [address] [address] [place] [address] Chronic nonintractable headache, unspecified headache type 03/03/2025 2:30 PM EDT Office Visit Osmany Vo MD [address] [place] [address] [place] [phone] Sascha Campbell APRN - CNP [address] [place] [address] [place] [address] maw documented as of this encounter Procedures Procedure Name Priority Date/Time Associated Diagnosis Comments XR CERVICAL SPINE (2-3 VIEWS) Routine 12/01/2024 1:[address] LUNG SCREENING (INITIAL/ANNUAL) Routine 12/01/2024 1:01 PM EDT documented in this encounter Results * XR CERVICAL SPINE (2-3 VIEWS) (12/01/2024 1:03 PM EDT) Anatomical Region Laterality Modality C-spine, T-spine, Neck Radiograp hic Imaging Sascha Bell CNP [facility] DIAGNOSTIC I MAGING ORDERABLES Final Result * CT LUNG CANCER SCREENING (INITIAL/ANNUAL) (12/01/2024 1:01 PM EDT) Anatomical Region Laterality Modality Lung, Chest Computed Tomogra phy Sascha Bell CNP IMEm[facility] CT ORDERABLE S Final Result documented in this encounter Visit Diagnoses Not on filedocumented in this encounter Additional Health Concerns Assessment Noted Time A fall risk assessment has been complete d for the patient 11/11/2024 1:15 PM EDT A Body Mass Index follow-up plan has been documented for the patient 09/02/2022 8:46 AM EST documented as of this encounter Care Teams Billing Collections Specialist Relationship Specialty Start Date End Date Sascha Campbell APRN - CNP [address] [place] [address] [place] [address] PCP - General Nurse Practitioner, Family 02/26/22 documented as of this encounter
--- OUTSIDE RECORDS SUMMARY | 2024-12-15 19:51 | XMS_ITS | Encounter Summary ---
Author Organization [facility] Address [address] [place] [address] Care Team Providers Care Auto Electrician Name Role Phone Unavailable Primary Care Provider Unavailabl e Encounter Details Date Type Department Care Team (Latest Contact Info) Description 12/01/2024 Travel Social History Tobacco Use Types Packs/Day [...] Ancillary Procedure [facility] MR [address] [place] [address] 12/16/2024 10:15 AM EDT Ancillary Procedure [facility] DXA [address] [place] [address] documented as of this encounter Visit Diagnoses Not on filedocumented in this encounter
--- OUTSIDE RECORDS SUMMARY | 2024-12-15 19:51 | XMS_ITS | Clinical Summary ---
Author Organization [facility] Address [address] [place] [address] Care Team Providers Care Tipple Operator Name Role Phone Unavailable Primary Care Provider Unavailabl e Allergies Active Allergy Reactions Criticality Noted Date Comments Statins Other 01/14/2023 Medications b complex vitamins capsule Take 1 capsule by mouth Daily Active celecoxib (CeleBREX) 100 MG capsule Take 1 capsule by mouth Daily 03/11/2024 Active cholecalciferol (Vitamin D-3) 125 MCG (5000 UT) tablet Take by mouth Active ezetimibe (Zetia) 10 MG tablet Take 1 tablet by mouth Daily 03/11/2024 Active omega-3 (Fish Oil) 1000 MG capsule Take 1,000 mg by mouth Daily Active Hospital, Clinic, or Other Facility Administered Medication Ordered Dose Route Frequency Start Date End Date Status iopamidol (Isovue-300) 61 % injection 100 mLIndications:Neck pain on right side,Headache, unspecified 100 mL IV Once in imaging 12/01/2024 12/01/2024 Ended Active Problems No known active problems Encounters Date Type Department Care Team Description 12/15/2024 Travel 12/10/2024 Travel 12/07/2024 Travel 12/01/2024 10:00 AM EDT Ancillary Procedure [facility] [address] [place] [address] Personal history of nicotine dependence 12/01/2024 9:30 AM EDT Ancillary Procedure [facility] [address] [place] [address] Neck pain on right side; Headache, unspecified 12/01/2024 9:15 AM EDT Ancillary Procedure [facility] RADIOLOGY [address] [place] [address] Neck pain on right side 12/01/2024 Travel from Last 3 Months Social History Tobacco Use Types Packs/Day Years Used Date Smoking Tobacco: Never Smokeless Tobacco: Never Tobacco Cessation:Counseling Given: Not Answered Comments Unknown Sex and Gender Information Value Date Recorded Sex Assigned at Not on file Legal Sex Female 8:04 PM EDT Gender Identity Female 04/28/2023 11:18 AM EDT Sexual Orientation Not on file Last Filed Vital Signs Vital Sign Reading Time Taken Comments Blood Pressure 123/68 07/28/2017 12:00 PM EST Pulse - - Temperature - - Respiratory Rate - - Oxygen Saturation - - Inhaled Oxygen Concentration - - Weight 61.2 kg (135 lb) 07/28/2017 12:00 PM EST Height 152.4 cm (5') 07/28/2017 12:00 PM EST Body Mass Index 26.37 07/28/2017 12:00 PM EST Plan of Treatment Upcoming Encounters Date Type Department Care Team (Late st Contact Info) Description 12/16/2024 9:30 AM EDT Ancillary Procedure [facility] [address] [place] [address] 12/16/2024 10:15 AM EDT Ancillary Procedure [facility] DXA [address] [place] [address] Health Maintenance Due Date Last Done Comments CT Colonography 1955 Colonoscopy 1955 FIT-DNA 1955 FOBT 1955 Sigmoidoscopy 1955 Mammogram 1995 Colorectal Cancer Screening 03/18/2024 FIT 03/18/2024 03/18/2023 Influenza Vaccine (Season Ended) 2025 Pneumococcal Vaccine: 65+ Years Completed , 07/29/2022 Procedures Procedure Name Priority Date/Time Associated Diagnosis Comments CT LUNG SCREENING LOW DOSE Routine 12/01/2024 10:03 AM EDT Personal history of nicotine dependence CT HEAD W AND WO IV CONTRAST Routine 12/01/2024 10:02 AM EDT Neck pain on right side Headache, unspecified XR CERVICAL SPINE 2-3 VIEWS Routine 12/01/2024 9:10 AM EDT Neck pain on right side from Last 3 Months Results * CT lung screening low dose [...] Vo MD IMG CT PROCEDURES Final Result * CT head w and wo IV [...] report is generated using voice recognition reporting (Treato). On occasion [employer] erroneously drops words from the report or replaces the spoken word with similar sounding words. Please call with any questions/concerns regarding this report.* Dictated and transcribed 12/01/24dpd This report has been electronically signed and [...] report is generated using voice recognition reporting (Treato).On occasion [employer] erroneously drops words from the report orreplaces the spoken word with similar sounding words. Please call with anyquestions/concerns regarding this report.* Dictated and transcribed 12/01/24dpd This report has been electronically signed and approved by theinterpreting radiologist. Osmany Vo MD IMG CT PROCEDURES Final Result * XR cervical spine 2 or 3 [...] report is generated using voice recognition reporting (Finjan). On occasion, [employer] erroneously drops words from the report or [...] report is generated using voice recognition reporting (Finjan).On occasion, [employer] erroneously drops words from the report orreplaces the spoken word with a similar sounding word. Please call withany questions/concerns regarding the report. Osmany Vo MD IMG XR PROCEDURES Final Result from Last 3 Months Insurance [employer]
--- OUTSIDE RECORDS SUMMARY | 2024-12-15 19:51 | XMS_ITS | Encounter Summary ---
Author Organization [facility] Address [address] [place] [address] Care Team Providers Care Payroll Tax Specialist Name Role Phone Unavailable Primary Care Provider Unavailabl e Encounter Details Date Type Department Care Team (Latest Contact Info) Description 12/10/2024 Travel Social History Tobacco Use Types Packs/Day [...] Ancillary Procedure [facility] MR [address] [place] [address] 12/16/2024 10:15 AM EDT Ancillary Procedure [facility] DXA [address] [place] [address] documented as of this encounter Visit Diagnoses Not on filedocumented in this encounter
--- OUTSIDE RECORDS SUMMARY | 2024-12-15 19:51 | XMS_ITS | Encounter Summary ---
Author Organization [facility] Address [address] [place] [address] Care Team Providers Care Project Manager Interior Design Name Role Phone Sascha Campbell APRN, CNP Primary Care Pr ovider Reason for Referral * Eval and Treat (Routine) - Open Specialty Diagnoses / Procedures Referred By Marky Referred To Contact Neurology Diagnoses Chronic nonintractable headache, unspecified headache type Sascha Campbell APRN - CNP [address] [place] [address] Phone: tel: fax: Magy Delaney MD [address] [place] [address] [address] Phone: tel: fax: Referral ID Status Reason Start Date Expiration Date V isits Requested Visits Authorized [id number] Open Specialty Services Required 12/06/2024 12/06/2025 1 1 Scheduling Instructions [facility] Neurology Comments The patient can be scheduled with any member of the group, including the provider with the first available appointments. * Other (Routine) - Closed Specialty Diagnoses / Procedures [facility] Referred To Contact Sleep Center Diagnoses Chronic nonintractable headache, unspecified headache type Hypersomnolence Procedures Baseline Diagnostic Sleep Study Sascha Campbell APRN - CNP [address] [place] [address], [facility] [place] [address] Phone: tel: fax: Referral ID Status Reason Start Date Expiration Date Visits Re quested Visits Authorized [id number] Closed 12/06/2024 12/06/2025 1 1 Reason for Visit * Reason Onset Date Comments Headache 12/02/2024 Encounter Details Date Type Department Care Team (Late st Contact Info) Description 12/02/2024 Telephone Osmany Vo MD [address] [place] [address] [place] [address] Sascha Campbell APRN - CNP [address] [place], [place] [id number] Headache Social History Tobacco Use Types Packs/Day Years Used Date Smoking Tobacco: Every Day Cigarettes 0.5 51.5 Started: 1973 Smokeless Tobacco: Never Alcohol Use Standard Drinks/Week Comments Not Currently 0 (1 standard drink = 0.6 oz pur e alcohol) [facility] Utilities Answer Date Recorded In the past 12 months has e [employer], gas, oil, or water [employer] threatened to shut off services in your [...] Never 03/11/2024 How often do you attend worship or synagogue serv ices? Never 03/11/2024 Do you belong to any clubs o r organizations such as worship groups, unions, fraternal or athletic groups, or [...] Date Recorded PHQ-9 Total Score 0 11/11/2024 [facility] [place] of Occupat ional Health - Occupational Stress [...] any time in the past 12 m [facility], were you homeless or living in [...] Description 02/03/2025 9:20 AM EDT Office Visit [facility] NE[facility] Part of [address] [place] [phone] Magy Delaney MD [address] [place] [address] [address] [facility] [address] Chronic nonintractable headache, unspecified headache type 03/03/2025 2:30 PM EDT Office Visit Osmany Vo MD [address] [place] [address] [place] [address] Sascha Campbell APRN - CNP [address] [place] [address] [place] [address] aida Scheduled Orders Name Type Priority Associated Diagnoses Orde r Schedule Baseline Diagnostic Sleep Study Sleep Center Routine Chronic nonintractable headache, unspecified headache type Hypersomnolence Expected: 12/06/2024, Expires: 06/07/2026 Scheduled Referrals Name Type Priority Associated Diagnoses Orde r Schedule Magy Arriaga MD, Neurology, [place] Outpatient Referral Routine Chronic nonintractable headache, unspecified headache type Ordered: 12/06/2024 documented as of this encounter Visit Diagnoses Diagnosis Chronic nonintractable headache, unspecified headache type- Primary Hypersomnolence Hypersomnia, unspecified documented in this encounter Additional Health Concerns Assessment Noted Time A fall risk assessment has been complete d for the patient 11/11/2024 1:15 PM EDT A Body Mass Index follow-up plan has been documented for the patient 09/02/2022 8:46 AM EST documented as of this encounter Care Teams Project Manager Interior Design Relationship Specialty Start Date End Date Sascha Campbell APRN - CNP [address] [place], [place] [address], [place] [address] PCP - General Nurse Practitioner, Family 02/26/22 documented as of this encounter
--- OUTSIDE RECORDS SUMMARY | 2024-12-15 19:51 | XMS_ITS | Encounter Summary ---
Author Organization [facility]ie [facility] Address [address] [place] [address] Care Team Providers Care Die Try Out Worker Name Role Phone Sascha Campbell APRN, CNP Primary Care Pr ovider Reason for Referral * Imaging (Routine) - Open Specialty Diagnoses / Procedures Referred By Marky ochoa Referred To Contact Radiology Diagnoses Chronic nonintractable headache, unspecified headache type Neck pain on right side Procedures MRI CERVICAL SPINE WO CONTRAST Sascha Campbell APRN - CNP [address] [facility], [facility] [address] Phone: tel: fax: Referral ID Status Reason Start Date Expiration Date Visits Re quested Visits Authorized [id number] Open 12/09/2024 12/09/2025 1 1 Encounter Details Date Type Department Care Team ([facility] Contact Info) Description 12/09/2024 Orders Only Osmany Vo MD [address] [place] [address] [place] [phone] Sascha Campbell APRN - CNP [address] [id number] Chronic nonintractable headache, unspecified headache type (Primary Dx); Neck pain on right side Social History Tobacco Use Types Packs/Day Years Used Date Smoking Tobacco: Every Day Cigarettes 0.5 51.5 Started: 1973 Smokeless Tobacco: Never Alcohol Use Standard Drinks/Week Comments Not Currently 0 (1 standard drink = 0.6 oz pur e alcohol) [facility] Utilities Answer Date Recorded In the past 12 months has th e electric, gas, oil, or water company [...] Never 03/11/2024 How often do you attend yazdanism or jain serv ices? Never 03/11/2024 Do you belong to any clubs o r organizations such as yazdanism groups, unions, fraternal or athletic groups, or [...] Date Recorded PHQ-9 Total Score 0 11/11/2024 [facility] of Occupat ional [facility] - Occupational Stress Questionnaire Answer Date Recorded [...] place to sleep or slept in a alf (including now)? No 03/06/2023 Housing Stability Vital Sign Answer Rayo e Recorded In the last 12 months, was t here a time when you were not able to pay the mortgage or rent on time? No 03/11/2024 In the past 12 months, how m any times have you moved where you were living? 1 03/11/2024 At any time in the past 12 m [facility], were you homeless or living in a alf (including now)? No 03/11/2024 Food Insecurity Answer [...] Description 02/03/2025 9:20 AM EDT Office Visit [facility] NEUR[facility] Part of [address] [place] [address] Magy Delaney MD [address] [place] [address] [address] [place] [address] Chronic nonintractable headache, unspecified headache type 03/03/2025 2:30 PM EDT Office Visit Osmany Vo MD [address] [place] [address] [place] [address] Sascha Campbell, KASIA - PATIENT SERVICES COORDINATOR [address] [facility], [place] [address] maw Scheduled Orders Name Type Priority Associated Diagnoses Orde r Schedule MRI CERVICAL SPINE WO CONTRAST Imaging Routine Chronic nonintractable headache, unspecified headache type Neck pain on right side Expected: 12/09/2024, Expires: 12/09/2025 documented as of this encounter Procedures Procedure Name Priority Date/Time Associated Diagnosis Comments CT HEAD NECK W WO CONTRAST Routine 12/01/2024 4:[address] HEAD W WO CONTRAST Routine 12/01/2024 4:53 PM EDT documented in this encounter Results * CT HEAD W WO CONTRAST (12/01/2024 4:53 PM EDT) Anatomical Region Laterality Modality Head Computed Tomogra phy Sascha Campbell APRN - PATIENT SERVICES COORDINATOR IMG CT ORDERABLE S Final Result * CT HEAD W WO CONTRAST (12/01/2024 4:53 PM EDT) Anatomical Region Laterality Modality Head Computed Tomogra phy Sascha Campbell APRN - PATIENT SERVICES COORDINATOR IMG CT ORDERABLE S Final Result documented in this encounter Visit Diagnoses Diagnosis Chronic nonintractable headache, unspecified headache type- Primary Neck pain on right side Cervicalgia documented in this encounter Additional Health Concerns Assessment Noted Time A fall risk assessment has been complete d for the patient 11/11/2024 1:15 PM EDT A Body Mass Index follow-up plan has been documented for the patient 09/02/2022 8:46 AM EST documented as of this encounter Care Teams Die Try Out Worker Relationship Specialty Start Date End Date Sascha Campbell APRN - CNP [address] [place] [address], [facility] [address] PCP - General Nurse Practitioner, Family 02/26/22 documented as of this encounter
--- OUTSIDE RECORDS SUMMARY | 2024-12-15 19:51 | XMS_ITS | Encounter Summary ---
Author Organization Frankie Krishnamurthycamron [facility] Address [address] [place] [address] Care Team Providers Care Edge Kitter Name Role Phone Sascha Campbell MEDICAL INSTRUMENT CABLE FABRICATOR - HANDKERCHIEF SAMPLE CLERK Primary Care Pr ovider Reason for Visit * Reason Onset Date Comments Headache 12/09/2024 Encounter Details Date Type Department Care Team ([facility] Contact Info) Description 12/09/2024 Telephone Osmany Vo MD [address] [place] [address] Sascha Campbell, MEDICAL INSTRUMENT CABLE FABRICATOR - HANDKERCHIEF SAMPLE CLERK [address] [facility], [place] [address] Headache Social History Tobacco Use Types Packs/Day Years Used Date Smoking Tobacco: Every Day Cigarettes 0.5 51.5 Started: 1973 Smokeless Tobacco: Never Alcohol Use Standard Drinks/Week Comments Not Currently 0 (1 standard drink = 0.6 oz pur e alcohol) [facility] Utilities Answer Date Recorded In the past 12 months has [facility], gas, oil, or water [employer] threatened to shut off services in your [...] Never 03/11/2024 How often do you attend restoration or druze serv ices? Never 03/11/2024 Do you belong to any clubs o r organizations such as restoration groups, unions, fraternal or athletic groups, or [...] Date Recorded PHQ-9 Total Score 0 11/11/2024 [facility] [place] of Occupat ional Health - Occupational Stress [...] place to sleep or slept in a long-term (including now)? No 03/06/2023 Housing Stability Vital Sign Answer Rayo e Recorded In the last 12 months, was t here a time when you were not able to pay the mortgage or rent on time? No 03/11/2024 In the past 12 months, how m any times have you moved where you were living? 1 03/11/2024 At any time in the past 12 m [facility], were you homeless or living in a long-term (including now)? No 03/11/2024 Food Insecurity Answer [...] 9:20 AM EDT Office Visit [facility] Part of [address] [facility] [place] [address] Magy Delaney MD [address] [facility] [address] [place] [address] Chronic nonintractable headache, unspecified headache type 03/03/2025 2:30 PM EDT Office Visit Osmany Vo MD [address] [place] [address] [place] [address] Sascha Campbell, MEDICAL INSTRUMENT CABLE FABRICATOR - HANDKERCHIEF SAMPLE CLERK [address] [facility] [address] maw Scheduled Orders Name Type Priority Associated Diagnoses Orde r Schedule C-Reactive Protein Lab Routine Chronic nonintractable headache, unspecified headache type Expected: 12/09/2024, Expires: 12/09/2025 Sedimentation Rate Lab Routine Chronic nonintractable headache, unspecified headache type Expected: 12/09/2024, Expires: 12/09/2025 documented as of this encounter Visit Diagnoses Diagnosis Chronic nonintractable headache, unspecified headache type- Primary Neck pain on right side Cervicalgia Acute intractable headache, unspecified headache type documented in this encounter Additional Health Concerns Assessment Noted Time A fall risk assessment has been complete d for the patient 11/11/2024 1:15 PM EDT A Body Mass Index follow-up plan has been documented for the patient 09/02/2022 8:46 AM EST documented as of this encounter Care Teams Edge Kitter Relationship Specialty Start Date End Date Sascha Campbell, KASIA - MAIKEL [address] [place] [address] [place] [address] PCP - General Nurse Practitioner, Family 02/26/22 documented as of this encounter
--- OUTSIDE RECORDS SUMMARY | 2024-12-15 19:51 | XMS_ITS | Encounter Summary ---
Author Organization Frankie Krishnamurthycamron [facility] Trey kimble [facility] Address [address] [place] [address] Care Team Providers Care Disintegrator Name Role Phone Sascha Campbell EDGE BANDER HAND - INSURANCE RISK SURVEYOR Primary Care Pr ovider Encounter Details Date Type Department Care Team ([facility] Contact Info) Description 10/11/2024 Results Follow-Up Osmany Vo MD [address] [place] [phone] Sascha Campbell, EDGE BANDER HAND - INSURANCE RISK SURVEYOR [address] [facility], [place] [address] Social History Tobacco Use Types Packs/Day Years Used Date Smoking Tobacco: Every Day Cigarettes 0.5 51.5 Started: 1973 Smokeless Tobacco: Never Alcohol Use Standard Drinks/Week Comments Not Currently 0 (1 standard drink = 0.6 oz pur e alcohol) [facility] Utilities Answer Date Recorded In the past 12 months has e [employer], gas, oil, or water [employer] threatened to shut off services in your [...] How often do you attend pentecostal or samaritan serv ices? Never 03/11/2024 Do [...] Date Recorded PHQ-9 Total Score 0 11/11/2024 [facility] - Occupational Stress Questionnaire Answer [...] place to sleep or slept in a senior living (including now)? No 03/06/2023 Housing Stability Vital Sign Answer Rayo e Recorded In the last 12 months, was t here a time when you were not able to pay the mortgage or rent on time? No 03/11/2024 In the past 12 months, how m any times have you moved where you were living? 1 03/11/2024 At any time in the past 12 m [facility], were you homeless or living in a senior living (including now)? No 03/11/2024 Food Insecurity Answer [...] 9:20 AM EDT Office Visit [facility] Part of [address] [place] [phone] Magy Delaney MD [address] [place] [address] [address] [place] [address] Chronic nonintractable headache, unspecified headache type 03/03/2025 2:30 PM EDT Office Visit Osmany Vo MD [address] [place] [address] [place] [address] Sascha Campbell, EDGE BANDER HAND - INSURANCE RISK SURVEYOR [address] [place] [address] [place] [address] maw documented as of this encounter Visit Diagnoses Not on filedocumented in this encounter Additional Health Concerns Assessment Noted Time A fall risk assessment has been complete d for the patient 08/31/2024 10:22 AM EST A Body Mass Index follow-up plan has been documented for the patient 09/02/2022 8:46 AM EST documented as of this encounter Care Teams Disintegrator Relationship Specialty Start Date End Date Sascha Campbell, KASIA - MAIKEL [address] [place] [address] [place] [address] PCP - General Nurse Practitioner, Family 02/26/22 documented as of this encounter
--- OUTSIDE RECORDS SUMMARY | 2024-12-15 19:51 | XMS_ITS | Encounter Summary ---
Author Organization [facility] Krish[facility]ur[facility]camron [facility] Address [address] [place] [address] Care Team Providers Care Green Material Value Added Assessor Name Role Phone Sascha Campbell RURAL MAIL CONTRACTOR - REGIONAL PROPERTY MANAGER Primary Care Pr ovider Encounter Details Date Type Department [facility] Team ([facility] Contact Info) Description 08/14/2023 Orders Only Osmany Vo MD [address] [place] [address] [place] [phone] ProviderSamy MD Social History Tobacco Use Types [...] often do you attend chur ch or christianity services? Never 03/06/2023 Do you belong to any clubs o r organizations such as mormon groups, unions, fraternal or athletic groups, or [...] Date Recorded PHQ-9 Total Score 0 03/06/2023 [facility] of Occupat ional Health - [...] in a halfway (including now)? No 03/06/2023 Food Insecurity Answer [...] [facility] Part of [address] [place] [address] Magy Delaney MD [address] [place] [address] [address] [place] [phone] Chronic nonintractable headache, unspecified headache type 03/03/2025 2:30 PM EDT Office Visit Osmany Vo MD [address] [place] [address] [place] [address] Sascha Campbell, RURAL MAIL CONTRACTOR - REGIONAL PROPERTY MANAGER [address] [place] [address], [address] [place] [address] maw documented as of this encounter Procedures Procedure Name Priority Date/Time Associated Diagnosis Comments LIPID PANEL Routine 08/06/2023 documented in this encounter Results * Lipid Panel (08/06/2023) Cholesterol, Total 216 mg/dL HDL 64 35 - 70 mg/dL LDL Calculated 134 0 - 160 mg/dL Triglycerides 93 mg/dL Chol/HDL Ratio 3.4 VLDL 18.6 mg/dL Cholesterol non HDL Blood BLOOD SPECIMEN / Unknown 08/06/2023 us Historical Provider CHEMISTRY ORDERABLES Edit ed Result [...] documented as of this encounter Care Teams Green Material Value Added Assessor Relationship Specialty Start Date End Date Sascha Campbell APRN - MAIKEL [address] [place] [address], [facility] [place] [phone] PCP - General Nurse Practitioner, Family 02/26/22 documented as of this encounter
--- OUTSIDE RECORDS SUMMARY | 2024-12-15 19:51 | XMS_ITS | Encounter Summary ---
Author Organization [facility] Address [address] [place] [address] Care Team Providers Care Cyber Engineer Name Role Phone Unavailable Primary Care Provider Unavailabl e Encounter Details Date Type Department Care Team (Latest Contact Info) Description 12/15/2024 Travel Social History Tobacco Use Types Packs/Day [...] Ancillary Procedure [facility] FNR MR [address] [place] [address] 12/16/2024 10:15 AM EDT Ancillary Procedure [facility] DXA [address] [place] [address] documented as of this encounter Visit Diagnoses Not on filedocumented in this encounter
--- OUTSIDE RECORDS SUMMARY | 2024-12-15 19:52 | XMS_ITS | Clinical Summary ---
Author Organization [facility] Address [address] [place] [address] Care Team Providers Care Highway Commissioner Name Role Phone Sascha Campbell ARCHITECT [employer] - [employer] Primary Care Pr ovider Allergies Active Allergy Reactions Criticality Noted Date Comments Statins Myalgia 01/14/2023 Medications Probiotic Product (PROBIOTIC ACIDOPHILUS BEADS PO) Take by mouth daily Active Cholecalciferol (VITAMIN D3) 125 MCG (5000 UT) TABS Take by mouth Active Multiple Minerals-Vitamins (VWA-CGT-AATG-D PO) Take by mouth daily Active Multiple Vitamins-Minerals (THERAPEUTIC MULTIVITAMIN-DELIVERY AGENT ALS) tablet Take 1 tablet by mouth daily Active b complex vitamins capsule Take 1 capsule by mouth daily Active Leonard-3 Fatty Acids (FISH OIL HIGH POTENCY) 1000 MG CAPS Take 1,000 mg by mouth daily Active NONFORMULARYIndica tions:Cholesteroff Take 1 capsule by mouth Daily Indications: Cholesteroff Active ezetimibe (ZETIA) 10 MG tablet TAKE 1 TABLET BY MOUTH EVERY DAY 90 tablet 1 10/02/19 25 Active celecoxib (CELEBREX) 100 MG capsule TAKE 1 CAPSULE BY MOUTH EVERY DAY 90 capsule 1 10/02/19 25 Active topiramate (TOPAMAX) 25 MG tabletIndications: Chronic nonintractable headache, unspecified headache type Take 1 tablet by mouth nightly 7 tablet 12/07/19 25 Active predniSONE (DELTASONE) 10 MG tablet TAKE 4 TABS FOR 3 DAYS, 3 TABS FOR 3 DAYS, 2 TABS FOR 3 DAYS, 1 TAB DAILY FOR 3 DAYS 30 tablet 12/11/19 25 Active gabapentin (NEURONTIN) 100 MG capsuleIndications :Neck pain on right side,Acute intractable headache, unspecified headache type Take 2 capsules by mouth nightly for 7 days. 14 capsule 12/15/19 25 025 Active gabapentin (NEURONTIN) 100 MG capsuleIndications :Neck pain on right side,Acute intractable headache, unspecified headache type Take 1 capsule by mouth nightly for 7 days. 7 capsule 11/13/19 25 025 Discontin ued(Thera py completed ) gabapentin (NEURONTIN) 100 MG capsuleIndications :Neck pain on right side,Acute intractable headache, unspecified headache type Take 2 capsules by mouth nightly for 7 days. 14 capsule 11/20/19 25 025 Discontin ued(REORD ER) gabapentin (NEURONTIN) 100 MG capsuleIndications :Neck pain on right side,Acute intractable headache, unspecified headache type Take 2 capsules by mouth nightly for 7 days. 14 capsule 11/27/19 25 025 Discontin ued(REORD ER) gabapentin (NEURONTIN) 100 MG capsuleIndications :Neck pain on right side,Acute intractable headache, unspecified headache type Take 2 capsules by mouth nightly for 7 days. 14 capsule 12/10/19 25 025 Discontin ued(REORD ER) Active Problems Problem Noted Date Diagnosed Date Osteoarthritis of patellofemoral joint 2 Osteopenia 11/19/2020 Hyperlipidemia 03/11/2017 Neuroma 03/11/2017 Encounters Date Type Department Care Team Description 12/14/2024 Refill [place] [address] Sascha Campbell, [employer]ECT [employer] Medication Refill 12/10/2024 [place] [address] Sascha Campbell, [employer]ECT [employer] 12/10/2024 [place] [address] Sascha Campbell, [employer]CH[employer]ECT [employer] 12/09/2024 Orders [place] [address] Sascha Campbell, ARCHITECT [employer] - [employer] Chronic nonintractable headache, unspecified headache type (Primary Dx); Neck pain on right side 12/09/2024 Telephone Osmany Vo MD [address] [place] [address] [place] [address] Sascha Campbellin, [employer]ECT [employer] Headache 12/07/2024 Orders Only Osmany Vo MD [address] [place] [address] Sascha Campbell, ARCHITECT [employer] - [employer] Acute intractable headache, unspecified headache type (Primary Dx); Chronic nonintractable headache, unspecified headache type 12/07/2024 Telephone Osmany Vo MD [address] [place] [address] [place] [address] Sascha Campbell, ARCHITECT [employer] Medication Problem 12/06/2024 Results Follow-Up Osmany Vo MD [address] [place] [address] [place] [address] Sascha Campbell, ARCHITECT [employer] - [employer] 12/03/2024 Telephone Osmany Vo MD [address] [place] [address] [place] [address] Sascha Campbell, ARCHITECT [employer] - [employer] 12/02/2024 Orders Only Osmany Vo MD [address] [place] [address] [place] [address] Sascha Campbell, ARCHITECT [employer] - [employer] 12/02/2024 Telephone Osmany Vo MD [address] [place] [address] [place] [address] Sascha Campbell, [employer]ECT [employer] Headache 11/26/2024 Telephone Osmany Vo MD [address] [place] [address] [place] [address] Sascha Campbell, [employer]ECT [employer] Headache 11/23/2024 Orders Only Osmany Vo MD [address] [place] [address] [place] [address] Sascha Campbell, [employer]ECT [employer] Neck pain on right side (Primary Dx); Acute intractable headache, unspecified headache type 11/19/2024 Telephone Osmany Vo MD [address] [place] [address] [place] [address] Sascha Campbell APRN - MAIKEL Other 11/15/2024 Results Follow-Up Osmany Vo MD [address] [place] [address] [place] [address] Sascha Campbell APRN - MAIKEL Abnormal Test Results 11/12/2024 10:59 AM EDT - 11/12/2024 11:59 PM EDT Hospital Encounter [facility] [address] [place] [address] Neck pain on right side; Acute intractable headache, unspecified headache type Discharge Disposition: Home or Self Care 11/12/2024 Telephone Osmany Vo MD [address] [place] [address] [place] [address] Sascha Campbell APRN - MAIKEL Pain 11/11/2024 1:15 PM EDT Office Visit Osmany Vo MD [address] [place] [address] [place] [address] Sascha Campbell APRN - MAIKEL Asymptomatic menopause (Primary Dx); Encounter for screening mammogram for high-risk patient; Neck pain on right side; Acute intractable headache, unspecified headache type; Hypersomnolence 11/03/2024 3:30 PM EDT Office Visit Osmany Vo MD [address] [place] [address] [place] [address] Anamika Ashley, ARCH[employer]ECT [employer] Acute nonintractable headache, unspecified headache type (Primary Dx) 10/11/2024 Results Follow-Up Osmany Vo MD [address] [place] [address] [place] [address] Sascha Campbell APRN - MAIKEL 10/01/2024 Refill Osmany Vo MD [address] [place] [address] [place] [address] Sascha Campbell APRN - CNP Medication Refill from Last 3 Months Immunizations Immunization Administration Dates Next Due Pneumococcal, PCV20, PREVNAR 20, (age 6w+), IM, 0.5mL 08/15/2023,07/29/2022 TDaP, ADACEL (age 10y-64y), BOOSTRIX (age 10y+), IM, 0.5mL 11/30/2016 Zoster Recombinant (Shingrix) 08/26/2023 Social History Tobacco Use Types Packs/Day Years Used Date Smoking Tobacco: Every Day Cigarettes 0.5 51.5 Started: 1973 Smokeless Tobacco: Never Tobacco Cessation:Ready to Q uit: No; Counseling Given: Yes Alcohol Use Standard Drinks/Week Comments Not Currently 0 (1 standard drink = 0.6 oz pur e alcohol) [facility] Utilities Answer Date Recorded In the past 12 months has e [employer], [employer], oil, or water [employer] threatened to shut off services in your [...] Never 03/11/2024 How often do you attend yazidi or zoroastrianism serv ices? Never 03/11/2024 Do you belong to any clubs o r organizations such as yazidi groups, unions, fraternal or athletic groups, or [...] Date Recorded PHQ-9 Total Score 0 11/11/2024 [facility] - [...] place to sleep or slept in a fpc (including now)? No 03/06/2023 Housing Stability Vital Sign Answer Rayo e Recorded In the last 12 months, was t here a time when you were not able to pay the mortgage or rent on time? No 03/11/2024 In the past 12 months, how m any times have you moved where you were living? 1 03/11/2024 At any time in the past 12 m [facility], were you homeless or living in a fpc (including now)? No 03/11/2024 Food Insecurity Answer [...] on file Sexual Orientation Not on file Last Filed Vital Signs Vital Sign Reading Time Taken Comments Blood Pressure 132/60 11/11/2024 1:23 PM EDT Pulse 68 11/11/2024 1:15 PM EDT Temperature 36.3 C (97.4 F) 06/11/2022 3:00 PM EST Respiratory Rate 18 06/11/2022 3:00 PM EST Oxygen Saturation - - Inhaled Oxygen Concentration - - Weight 65.8 kg (145 lb) 11/11/2024 1:15 PM EDT Height 152.4 cm (5') 11/11/2024 1:15 PM EDT Body Mass Index 28.32 11/11/2024 1:15 PM EDT Plan of Treatment Upcoming Encounters Date Type Department Care Team (Late st Contact Info) Description 02/03/2025 9:20 AM EDT Office Visit [facility] Part of [address] [place] [phone] Magy Delaney MD [address] [place] [address] [address] [place] [address] Chronic nonintractable headache, unspecified headache type 03/03/2025 2:30 PM EDT Office Visit Osmany Vo MD [address] [place] [address] [place] [address] Sascha Campbell, ARCH[employer]ECT [employer] - [employer] [address] [facility], [address] [facility] [place] [address] ma Health Maintenance Due Date Last Done Comments Breast cancer screen 1995 Colonoscopy 11/20/2000 Sigmoidoscopy/CT colonography 11/20/2000 DEXA (modify frequency per FRAX score) 11/20/2010 COVID-19 Vaccine ( season) 2024 06/20/2023, 04/22/2022, 05/28/2021, Additional history exists FIT/FOBT: Average risk 03/18/2024 03/18/2023, 2021 Annual Wellness Visit (Medicare Advantage) 06/30/2024 03/11/2024, 03/06/2023, 09/02/2022 Flu vaccine (Season Ended) 2025 Depression Screen 11/11/2025 11/11/2024, 11/11/2024 Lung Cancer Screening &/or Counseling 12/01/2025 12/01/2024, 04/29/2023, 03/12/2022 DTaP/Tdap/Td vaccine (2 - Td or Tdap) 11/30/2026 11/30/2016 Colorectal Cancer Screen 10/05/2027 Fecal-DNA (Cologuard): Average risk 10/05/2027 10/04/2024 Lipids 08/24/2029 08/24/2024, 0910/2023, 10/29/2023, Additional history exists Pneumococcal 50+ years Vaccine Completed 08/15/2023, 07/29/2022 Respiratory Syncytial Virus (RSV) or age 60 yrs+ Completed 09/04/2023 Shingles vaccine Completed 10/21/2023, 08/26/2023 Hepatitis C screen Completed 03/04/2024 A1C test (Diabetic or Prediabetic) Discontinued 08/24/2024, 09/01/2023, 08/16/2022 Diabetes screen Discontinued 08/24/2024, 030 09/2023, 06/04/2023, Additional history exists Hepatitis A vaccine Aged Out No longe r eligible based on patient's age to complete this topic Hepatitis B vaccine Aged Out No longe r eligible based on patient's age to complete this topic Hib vaccine Aged Out No longer eligi ble based on patient's age to complete this topic Meningococcal (ACWY) vaccine Aged Out No longer eligible based on patient's age to complete this topic Meningococcal B vaccine Aged Out No l onger eligible based on patient's age to complete this topic Polio vaccine Aged Out No longer elig ible based on patient's age to complete this topic Procedures Procedure Name Priority Date/Time Associated Diagnosis Comments AMB EXTERNAL REFERRAL TO NEUROLOGY Routine 12/07/2024 Chronic nonintractable headache, unspecified headache type Acute intractable headache, unspecified headache type CT HEAD NECK W WO CONTRAST Routine 12/01/2024 4:[address] HEAD W WO CONTRAST Routine 12/01/2024 4:53 PM EDT XR CERVICAL SPINE (2-3 VIEWS) Routine 12/01/2024 1:[address] LUNG SCREENING (INITIAL/ANNUAL) Routine 12/01/2024 1:01 PM EDT SEDIMENTATION RATE Routine 11/12/2024 9: 58 AM EDT Neck pain on right side Acute intractable headache, unspecified headache type C-REACTIVE PROTEIN Routine 11/12/2024 9 :58 AM EDT Neck pain on right side Acute intractable headache, unspecified headache type FECAL DNA COLORECTAL CANCER SCREENING (COLOGUARD) Routine 10/04/2024 1:30 PM EDT Screening for colon cancer LIPID PANEL Routine 08/24/2024 12:23 PM EST Mixed hyperlipidemia Abnormal finding of blood chemistry, unspecified HEMOGLOBIN A1C Routine 08/24/2024 12:23 PM EST Mixed hyperlipidemia Abnormal finding of blood chemistry, unspecified HEPATITIS C ANTIBODY Routine 03/04/2024 9:00 AM EDT Need for hepatitis C screening test POCT FECAL IMMUNOCHEMICAL TEST (FIT) Routine 03/18/2023 3:14 PM EDT Screening for colon cancer from Last 3 Months or Most Recently Relevant to Health Maintenance Results * External Referral To Neurology (12/07/2024) Sascha Campbell [employer]ECT [employer] CHP AMB EXT REFE RRALS Final Result * CT HEAD W WO CONTRAST (12/01/2024 4:53 PM EDT) Anatomical Region Laterality Modality Head Computed Tomogra phy Sascha Campbell [employer]CHITECT [employer] - [employer] IMG CT ORDERABLE S Final Result * CT HEAD W WO CONTRAST (12/01/2024 4:53 PM EDT) Anatomical Region Laterality Modality Head Computed Tomogra phy [facility] Campbell [facility] S Final Result * XR CERVICAL SPINE (2-3 VIEWS) (12/01/2024 1:03 PM EDT) Anatomical Region Laterality Modality C-spine, T-spine, Neck Radiograp hic Imaging Sascha Campbell ARCHITECT NAVAL - [facility] DIAGNOSTIC I MAGING ORDERABLES Final Result * CT LUNG CANCER SCREENING (INITIAL/ANNUAL) (12/01/2024 1:01 PM EDT) Anatomical Region Laterality Modality Lung, Chest Computed Tomogra phy Sascha Campbell ARCHITECT [employer] - [employer] G CT ORDERABLE S Final Result * Sedimentation Rate (11/12/2024 9:58 AM EDT) Sed Rate, Automated 26 0 - 30 mm/Hr 11/12/2024 9:58 AM EDT [employer] Blood BLOOD SPECIMEN / Unknown 11/12/2024 9:58 AM EDT 11/12/2024 11:16 AM EDT Sascha Cha Campbell ARCH[employer]ECT [employer] HEMATOLOGY ORDER JUSTIN Final Result Performing Organization Address [facility]/ZIP Co de Phone Number [employer] [address] [place] [address], [facility] [phone] * (ABNORMAL) C-Reactive Protein (11/12/2024 9:58 AM EDT) Pathologist [facility] CRP 5.1(H) 0.0 - 5.0 mg/L 11/12/2024 9:58 AM EDT [facility] Blood BLOOD SPECIMEN / Unknown 11/12/2024 9:58 AM EDT 11/12/2024 11:16 AM EDT Sascha Campbell ARCHITECT [employer] - [employer] CHEMISTRY ORDERA BLES Final Result Performing Organization Address [facility] Co de Phone Number [employer] [address] [place] [address], [facility] [phone] * Fecal DNA Colorectal cancer screening (Cologuard) (10/04/2024 1:30 PM EDT) Pathologist [facility] FIT-DNA (Cologuard) Negative Negative 10/11 8:48 AM EDT [employer] (CLIA #:[id number]) Comment: NEGATIVE TEST RESULT. A negative Cologuard result indicates a low likelihood that a colorectal cancer (CRC) or advanced adenoma (adenomatous polyps with more advanced pre-malignant features) is present. The chance that a person with a negative Cologuard test has a colorectal cancer is less than 1 in 1500 (negative predictive value >99.9%) or has an advanced adenoma is less than 5.3% (negative predictive value 94.7%). These data are based on a prospective cross-sectional study of 10,000 individuals at average risk for colorectal cancer who were screened with both Cologuard and colonoscopy. (Ruchi Moreno, N Engl J Med 2014;370(14):4941-0460) The normal value (reference range) for this assay is negative. COLOGUARD RE-SCREENING RECOMMENDATION: Periodic colorectal cancer screening is an important part of preventive healthcare for asymptomatic individuals at average risk for colorectal cancer. Following a negative Cologuard result, the [place] [employer] Society and U.S. Multi-Society Task Force screening guidelines recommend a Cologuard re-screening interval of 3 years. References: [place] [employer] Guideline for Colorectal Cancer Screening: https://www.cancer.org/cancer/wbtqc-fgegnt-yihgop/detqrvoff-kdixonyol-lvkmppr/ac s-rec ommendations.html.; Fidel DK, Melody FUCHS, Emily GrayK, Colorectal Cancer Screening: Recommendations for Physicians and Patients from the U.S. Multi-Society Task Force on Colorectal Cancer Screening , Am J Gastroenterology 2017; 112:1860-9888. TEST DESCRIPTION: Composite algorithmic analysis of stool DNA-biomarkers with hemoglobin immunoassay. Quantitative values of individual biomarkers are not reportable and are not associated with individual biomarker result reference ranges. Cologuard is intended for colorectal cancer screening of adults of either sex, 45 years or older, who are at average-risk for colorectal cancer (CRC). Cologuard has been approved for use by the U.S. FDA. The performance of Cologuard was established in a cross sectional study of average-risk adults aged 50-84. Cologuard performance in patients ages 45 to 49 years was estimated by sub-group analysis of near-age groups. Colonoscopies performed for a positive result may find as the most clinically significant lesion: colorectal cancer [4.0%], advanced adenoma (including sessile serrated polyps greater than or equal to 1cm diameter) [20%] or non- advanced adenoma [31%]; or no colorectal neoplasia [45%]. These estimates are derived from a prospective cross-sectional screening study of 10,000 individuals at average risk for colorectal cancer who were screened with both Cologuard and colonoscopy. (Ruchi Manuel al, N Engl J Med 2014;370(14):2474-1270.) Cologuard may produce a false negative or false positive result (no colorectal cancer or precancerous polyp present at colonoscopy follow up). A negative Cologuard test result does not guarantee the absence of CRC or advanced adenoma (pre-cancer). The current Cologuard screening interval is every 3 years. ([place] [employer] and U.S. Multi-Society Task Force). Cologuard performance data in a 10,000 patient pivotal study using colonoscopy as the reference method can be accessed at the following location: www.[employer].ComparaOnline/results. Additional description of the Cologuard test process, warnings and precautions can be found at www.coluShiprd.ComparaOnline. Feces (substance) STOOL SPECIMEN / Unknown 10/04/2024 1:30 PM EDT 10/06/2024 12:35 PM EDT Sascha Campbell ARCHITECT NAVAL - [facility] MICROBIOLOGY - G ENERAL ORDERABLES Final Result [employer] (CLIA #:[id number]) [address] [place] [address], [facility] [phone] * Hemoglobin A1C (08/24/2024 12:23 PM EST) Hemoglobin A1C 5.6 4.0 - 6.0 % 08/24/2024 12:23 PM EST [employer] Estimated Avg Glucose 114 mg/dL 08/24/2024 12:23 PM EST [employer] Comment: The ADA and AACC recommend providing the estimated average glucose result to permit better patient understanding of their HBA1c result. Blood BLOOD SPECIMEN / Unknown 08/24/2024 12:23 PM EST 08/24/2024 1:51 PM EST Sascha Campbell APRN - [facility] CHEMISTRY ORDERA BLES Final Result Performing Organization Address City/[facility]/ZIP Co de Phone Number [employer] [address] [id number] [phone] * (ABNORMAL) Lipid Panel (08/24/2024 12:23 PM EST) Cholesterol, Total 231(H) 0 - 199 mg/dL 08/24/2024 12:23 PM EST [employer] Comment: Cholesterol Guidelines: <200 Desirable 200-240 Borderline >240 Undesirable HDL 56 >40 mg/dL 08/24/2024 12:23 PM EST [employer] Comment: HDL Guidelines: <40 Undesirable 40-59 Borderline >59 Desirable LDL Cholesterol 150(H) 0 - 100 mg/dL 08/24/2024 12:23 PM EST [employer] Comment: LDL Guidelines: <100 Desirable 100-129 Near to/above Desirable 130-159 Borderline >159 Undesirable Direct (measured) LDL and calculated LDL are not interchangeable tests. Chol/HDL Ratio 4.1 08/24/2024 12:23 PM EST [employer] Triglycerides 127 <150 mg/dL 08/24/2024 12:23 PM EST [employer] Comment: Triglyceride Guidelines: <150 Desirable 150-199 Borderline 200-499 High >499 Very high Based on AHA Guidelines for fasting triglyceride, March 2012. VLDL 25 1 - 30 mg/dL 08/24/2024 12:23 PM EST [employer] Blood BLOOD SPECIMEN / Unknown 08/24/2024 12:23 PM EST 08/24/2024 1:51 PM EST Sascha Campbell ARCHITECT NAVAL - [employer] CHEMISTRY ORDERA BLES Final Result Performing Organization Address [facility] Number [employer] [address] [place] [address] * Hepatitis C Antibody (03/04/2024 9:00 AM EDT) Hepatitis C Ab NONREACTIVE NONREACTIVE 03/04/20 9:00 AM EDT [employer] Comment: The hepatitis C procedure used in our laboratory is a Chemiluminescent test specific for three recombinant HCV antigens. A negative anti-HCV result indicates that the antibodies to hepatitis C virus are not present at this time. Individuals with reactive anti-HCV should be considered infected and infectious until proven otherwise. Confirmation of all equivocal or reactive results is recommended by ordering HCV RNA by PCR. Blood BLOOD SPECIMEN / Unknown 03/04/2024 9:00 AM EDT 03/04/2024 9:28 AM EDT Sascha Campbell ARCHITECT NAVAL - [employer] IMMUNOLOGY ORDER JUSTIN Final Result Performing Organization Address [facility] Co de Phone Number [employer] [address] [place] [address], [facility] [phone] * POCT Fecal Immunochemical Test (FIT) (03/18/2023 3:14 PM EDT) Fecal Blood Immunochemical Test NEGATIVE Control PRESENT STOOL SPECIMEN / Unknown 03/18/2023 3:14 PM EDT Sascha Campbell APRN - MAIKEL POINT OF CARE TE ST ORDERABLES Final Result from Last 3 Months or Most Recently Relevant to Health Maintenance Insurance [employer] Advance Directives * Full Code (Latest Code Status on File) Date Activated Date Inactivated Comments 03/11/2024 10:39 [address] Commissioner Relationship Specialty Start Date End Date Sascha Campbell APRN - CNP [address] [place] [address], [place] [address] PCP - General Nurse Practitioner, Family 02/26/22
--- OUTSIDE RECORDS SUMMARY | 2024-12-15 19:52 | XMS_ITS | Encounter Summary ---
Author Organization [facility] Address [address] [place] [address] Care Team Providers Care Web Page Designer Name Role Phone Sascha Campbell CONSERVATION COORDINATOR - MAGNETIC PROSPECTING OPERATOR Primary Care Pr ovider Encounter Details Date Type Department Care Team ([facility] Contact Info) Description 12/10/2024 Orders Only Osmany Vo MD [address] [place] [address] Sascha Campbell, CONSERVATION COORDINATOR - MAGNETIC PROSPECTING OPERATOR [address] [facility], [place] [address] Social History Tobacco Use Types Packs/Day Years Used Date Smoking Tobacco: Every Day Cigarettes 0.5 51.5 Started: 1973 Smokeless Tobacco: Never Alcohol Use Standard Drinks/Week Comments Not Currently 0 (1 standard drink = 0.6 oz pur e alcohol) [facility] Utilities Answer Date Recorded In the past 12 months has e [employer], gas, oil, or water [employer] threatened to shut off services in your [...] Never 03/11/2024 How often do you attend episcopalian or restorationist serv ices? Never 03/11/2024 Do you belong to any clubs o r organizations such as episcopalian groups, unions, fraternal or athletic groups, or [...] Date Recorded PHQ-9 Total Score 0 11/11/2024 [facility] - [...] place to sleep or slept in a correction (including now)? No 03/06/2023 Housing Stability Vital Sign Answer Rayo e Recorded In the last 12 months, was t here a time when you were not able to pay the mortgage or rent on time? No 03/11/2024 In the past 12 months, how m any times have you moved where you were living? 1 03/11/2024 At any time in the past 12 m [facility], were you homeless or living in a correction (including now)? No 03/11/2024 Food Insecurity Answer [...] Description 02/03/2025 9:20 AM EDT Office Visit [facility] NEUROLOG[facility] Part of [address] [place] [address] Magy Delaney MD [address] [place] [address] [address] [place] [phone] Chronic nonintractable headache, unspecified headache type 03/03/2025 2:30 PM EDT Office Visit Osmany Vo MD [address] [place] [address] [place] [address] Sascha Campbell, CONSERVATION COORDINATOR - MAGNETIC PROSPECTING OPERATOR [address] [place] [address] [place] [address] maw documented as of this encounter Visit Diagnoses Not on filedocumented in this encounter Additional Health Concerns Assessment Noted Time A fall risk assessment has been complete d for the patient 11/11/2024 1:15 PM EDT A Body Mass Index follow-up plan has been documented for the patient 09/02/2022 8:46 AM EST documented as of this encounter Care Teams Web Page Designer Relationship Specialty Start Date End Date Sascha Campbell, KASIA - MAIKEL [address] [place] [address] [place] [address] PCP - General Nurse Practitioner, Family 02/26/22 documented as of this encounter
--- OUTSIDE RECORDS SUMMARY | 2024-12-15 19:52 | XMS_ITS | Encounter Summary ---
Author Organization [facility] lamin [facility] Address [address] [place] [address] Care Team Providers Care Renewals Specialist Name Role Phone Sascha Campbell CHIP TUNER - CREAM GATHERER Primary Care Pr ovider Encounter Details Date Type Department Care Team ([facility] Contact Info) Description 12/10/2024 Results Follow-Up Osmany Vo MD [address] [place] [phone] Sascha Campbell, CHIP TUNER - CREAM GATHERER [address] [facility], [place] [address] Social History Tobacco Use Types Packs/Day Years Used Date Smoking Tobacco: Every Day Cigarettes 0.5 51.5 Started: 1973 Smokeless Tobacco: Never Alcohol Use Standard Drinks/Week Comments Not Currently 0 (1 standard drink = 0.6 oz pur e alcohol) [facility] Utilities Answer Date Recorded In the past 12 months has e [employer], gas, oil, or water [employer] threatened to shut off services in your [...] Never 03/11/2024 How often do you attend jainism or rastafarian serv ices? Never 03/11/2024 Do you belong to any clubs o r organizations such as jainism groups, unions, fraternal or athletic groups, or [...] Date Recorded PHQ-9 Total Score 0 11/11/2024 [facility]ational Stress Questionnaire [...] place to sleep or slept in a [place] facility (including now)? No 03/06/2023 Housing Stability Vital Sign Answer Rayo e Recorded In the last 12 months, was t here a time when you were not able to pay the mortgage or rent on time? No 03/11/2024 In the past 12 months, how m any times have you moved where you were living? 1 03/11/2024 At any time in the past 12 m [facility], were you homeless or living in a [place] facility (including now)? No 03/11/2024 Food Insecurity Answer [...] 02/03/2025 9:20 AM EDT Office Visit [facility] Part of [address] [place] [phone] Magy Delaney MD [address] [place] [address] [address] [place] [address] Chronic nonintractable headache, unspecified headache type 03/03/2025 2:30 PM EDT Office Visit Osmany Vo MD [address] [place] [address] [place] [address] Sascha Campbell, CHIP TUNER - MAIKEL [address] [place] [address] [place] [address] maw documented as of this encounter Visit Diagnoses Not on filedocumented in this encounter Additional Health Concerns Assessment Noted Time A fall risk assessment has been complete d for the patient 11/11/2024 1:15 PM EDT A Body Mass Index follow-up plan has been documented for the patient 09/02/2022 8:46 AM EST documented as of this encounter Care Teams Renewals Specialist Relationship Specialty Start Date End Date Sascha Campbell APRN - CNP [address] [place] [address] [place] [address] PCP - General Nurse Practitioner, Family 02/26/22 documented as of this encounter
--- OUTSIDE RECORDS SUMMARY | 2024-12-15 19:52 | XMS_ITS | Encounter Summary ---
Author Organization [facility] lamin [facility] Address [address] [place] [address] Care Team Providers Care Software Installer Name Role Phone Sascha Campbell TRADING ANALYST - BONDING EQUIPMENT OPERATOR Primary Care Pr ovider Encounter Details Date Type Department Care Team ([facility] Contact Info) Description 12/06/2024 Results Follow-Up Osmany Vo MD [address] [place] [phone] Sascha Campbell, TRADING ANALYST - BONDING EQUIPMENT OPERATOR [address] [facility], [place] [address] Social History Tobacco Use Types Packs/Day Years Used Date Smoking Tobacco: Every Day Cigarettes 0.5 51.5 Started: 1973 Smokeless Tobacco: Never Alcohol Use Standard Drinks/Week Comments Not Currently 0 (1 standard drink = 0.6 oz pur e alcohol) [facility] Utilities Answer Date Recorded In the past 12 months has e [employer], gas, oil, or water [employer] threatened to shut off services in your [...] Never 03/11/2024 How often do you attend christianity or sikhism serv ices? Never 03/11/2024 Do you belong to any clubs o r organizations such as christianity groups, unions, fraternal or athletic groups, or [...] Date Recorded PHQ-9 Total Score 0 11/11/2024 [facility] - Occupational Stress Questionnaire [...] any time in the past 12 m [facility], were you homeless or [...] Description 02/03/2025 9:20 AM EDT Office Visit [facility] NEUROLOGY Part of [address] [place] [phone] Magy Delaney MD [address] [place] [address] [address] [place] [phone] Chronic nonintractable headache, unspecified headache type 03/03/2025 2:30 PM EDT Office Visit Osmany Vo MD [address] [place] [address] [place] [address] Sascha Campbell, TRADING ANALYST - MAIKEL [address] [place] [address] [place] [address] maw documented as of this encounter Visit Diagnoses Not on filedocumented in this encounter Additional Health Concerns Assessment Noted Time A fall risk assessment has been complete d for the patient 11/11/2024 1:15 PM EDT A Body Mass Index follow-up plan has been documented for the patient 09/02/2022 8:46 AM EST documented as of this encounter Care Teams Software Installer Relationship Specialty Start Date End Date Sascha Campbell APRN - CNP [address] [place] [address] [place] [address] PCP - General Nurse Practitioner, Family 02/26/22 documented as of this encounter
== END 2024-12-15 19:49 | disposition home or self-care (01) ==
LOC: SLEEP 19:48
DX: G47.10 Hypersomnia, unspecified (principal); R51.9 Headache, unspecified; G89.29 Other chronic pain
CPT/HCPCS: 95810